=== PATIENT | male | born 1955 | race Caucasian/White ===

== ENCOUNTER 2017-06-09 09:32 | Outpatient (CLI) | payer BC ==
--- NOTE | 2017-06-09 14:42 | MRI ---
MRI LUMBAR SPINE NONCONTRAST: Date: 06/09/17 HISTORY: Low back pain with bilateral leg radiculopathy. FINDINGS: Radiographs are not available for direct correlation; therefore, the lowest lumbar-type vertebra alejandra l be designated as L5, with the remainder numbered accordingly. The conus medullaris has a normal ap pearance. Vertebral body heights are maintained. T12-L1, L1-2, L2-3, and L3-4: Mild osteophytosis and discogenic end plate changes are present. The central canal and neural forami na are patent. L4-5: There is desiccation of the disc and minimal degenerative spondylolisthesis. Prominent posterior dis c protrusion, along with facet joint hypertrophy and ligamentous thickening result in severe stenosi s of the central canal and each neural foramen. In addition, a 0.3 cm synovial cyst projects mediall y from the left facet, further compromising the left neural foramen. L5-S1: There is desiccation of the intervertebral disc. Mild osteophytosis is present. The thecal sac is pa tent. Moderate stenosis of each neural foramen is visible. IMPRESSION: Degenerative changes of the lower lumbar spine, with central canal and foraminal stenoses most sever e at the L4-5 level, as detailed above. POS: [facility]
== END 2017-06-09 09:33 | disposition home or self-care (01) ==
LOC: SCSMRI 09:32
PROVIDERS: ATTEND Family Medicine
DX: M54.9 Dorsalgia, unspecified (principal); M47.816 Spondylosis without myelopathy or radiculopathy, lumbar region; M48.061 Spinal stenosis, lumbar region without neurogenic claudication
CPT/HCPCS: 72148

== ENCOUNTER 2017-06-21 14:14 | Outpatient (CLI) | payer BC ==
[2017-06-21 16:22] LABS: Hematocrit 46.8 % (42.0-52.0); Mean Platelet Volume 6.3 fL (7.4-10.4); Red Blood Cell (RBC) Count 4.46 mill/uL (4.70-6.10); White Blood Cell (WBC) Count 11.2 thou/uL (4.8-10.8)
[2017-06-21 16:32] LABS: Anion Gap 12 mmol/L (10-20); BUN (Urea Nitrogen) 14 mg/dL (8.4-25.7); Calc. Creatinine Clearance 0 mL/min (70-130); Calcium 9.4 mg/dL (7.8-10.44); Carbon Dioxide 23 mmol/L (23-31); Chloride 101 mmol/L (98-107); Estimated GFR-MDRD Greater than 90
== END 2017-06-21 14:15 | disposition home or self-care (01) ==
LOC: LABBT 14:14
PROVIDERS: ATTEND Neurological Surgery
DX: Z01.818 Encounter for other preprocedural examination (principal); M48.062 Spinal stenosis, lumbar region with neurogenic claudication
CPT/HCPCS: 80048; 85027; 93005; 93010

== ENCOUNTER 2017-06-23 07:41 | Day surgery (SDC) | payer BC ==
[2017-06-21 14:34] VITALS: BMI 30.4
--- NOTE | 2017-06-23 02:59 | HP ---
HISTORY OF PRESENT ILLNESS: Mr. Daugherty is a 62-year-old man over the past 10 days who has experienc ed precipitous decline in motor function of his legs secondary to profound spinal canal stenosis at L 4-L5 with associated superiorly migrated disk herniation. He can walk, but has severe neurogenic cla udication symptoms. He has not had any treatment for this at present and is very interested in injec tions; however, I do not feel that this is a great option given how profound her symptoms and stenosi s are. PAST MEDICAL HISTORY: Significant for inguinal hernia, unspecified liver problems and coronary arter ial disease. PAST SURGICAL HISTORY: Liver biopsy, herniorrhaphy, cardiac stents. CURRENT MEDICATIONS: Triamterene/hydrochlorothiazide, amlodipine, Flexeril, Toradol, Stanton, diazepam . ALLERGIES: PENICILLIN. PHYSICAL EXAMINATION: The patient is in wheelchair. In the exam room today, his gait is extraordina rily antalgic. He has appropriate positive straight leg raise bilaterally. He has no sensory distur bance that I can discern. He does have motor weakness present in bilateral ankle, plantar, and dorsi flexion grading 4/5. Reflexes are equal and present bilaterally at the patella. ASSESSMENT: Spinal stenosis and neurogenic claudication. PLAN: Discussed L4-L5 decompression with he and with Dr. Garrido. Dr. Garrido met with the patient, rev iewed imaging, and ultimately advocated for an L4-L5 decompression. He explained to the patient the risks, benefits, and alternatives to the procedure. The patient expressed understanding and would li ke to move forward with surgery as discussed. I do believe the patient is mentally competent and cap able of making medical decisions for himself and we will move forward with surgery as planned. Eusebio Orellana PA-C, dictating under Dr. Garrido.
[2017-06-23] MEDS ORDERED: Clindamycin/D5W 900 mg/50 ml Premix Bag ONE ×2 (08:07→15:17)
[2017-06-23] MEDS ORDERED: Levofloxacin 500 mg/D5W 100 ml Premix Bag ONE (08:07)
--- NOTE | 2017-06-23 08:40 | PRG ---
DATE OF SERVICE: 06/23/2017 SUBJECTIVE: Mr. Daugherty is a 62-year-old gentleman that reports that over the past couple of weeks, he has had progressive pain and weakness in the lower extremities. He was seen in our clinic where vin romel had an MRI scan performed of the lumbar spine which shows severe lumbar stenosis at L4-5 in part du e to facet arthropathy, but also to an L4 disk herniation with a slight degree of superior migration. I met with him this morning and the family to discuss again imaging and in his symptoms. He and th e family report now that he has started to have some bowel and bladder incontinence. He also reports numbness in his feet and started to develop some saddle anesthesia over the past couple of days. We were unaware of this until this morning. I reviewed with him the surgical plan which he will have an L4-5 lumbar decompression and diskectomy. I reviewed with him all the risks, benefits, and alternatives to treatment. I answered all the que stions from the family. They all appeared to understand the contents of our conversation and he did provide informed consent.
[2017-06-23] MEDS ORDERED: Fentanyl 250 MCG/5 ML VIAL ONE (08:53)
[2017-06-23] MEDS ORDERED: Lidocaine 1% PF 5 ML VIAL ONE (09:30)
[2017-06-23] MEDS ORDERED: Glycopyrrolate 0.2 MG/ML 5 ML SYRINGE ONE (09:30)
[2017-06-23] MEDS ORDERED: Propofol 200 MG/20 ML VIAL ONE (09:30)
[2017-06-23] MEDS ORDERED: Ondansetron HCl/PF 4 MG/2 ML Vial ONE (09:30)
[2017-06-23] MEDS ORDERED: Fentanyl 100 MCG/2 ML VIAL ONE (11:24)
--- NOTE | 2017-06-23 11:38 | OP ---
DATE OF OPERATION: 06/23/2017 SURGEON: Torres Garrido M.D. MEDICAL INFORMATION SPECIALIST: Eusebio Orellnaa PA-C INDICATION: Pain. DIAGNOSES: Lumbar stenosis, lumbar radiculopathy, and cauda equina. PROCEDURE: L4-5 lumbar decompression discectomy. ANESTHESIA: General. TECHNIQUE: The patient was brought into the operating room and placed under general anesthesia. He was flipped from a supine to a prone position on the operating room table. A linear incision was dee nned over the L4-L5 segment. After prepping and draping and after an appropriate operative pause, th e incision was created. The soft tissues were swept away from midline. A self-retaining retractor w as placed in the wound for optimal exposure. After confirming the appropriate level, an Adson rongeu r was used to remove the spinous process of L4 and the superior aspect of L5. A high-speed cutting d rill bit as well as 2, 3 and 4-mm Kerrisons were then used to perform a laminectomy along the L4-5 in terspace. The central canal and lateral recesses were completely decompressed. There was a superior ly migrated disk material, most prominent on the left side that was removed. After complete decompre ssion, the wound was irrigated. Hemostasis was maintained throughout. The wound was then closed in anatomic layers and a pressure dressing was applied. There were no known procedural complications.
[2017-06-23] MEDS ORDERED: Tamsulosin HCl 0.4 MG CAP ONE (11:53)
[2017-06-23] MEDS ORDERED: HYDROcodone/Acetaminophen 5/325 mg Tablet ONE (13:59)
== END 2017-06-23 16:04 | disposition home or self-care (01) ==
LOC: SDC 07:41
PROVIDERS: ATTEND Neurological Surgery
PROC: 00NY0ZZ Release Lumbar Spinal Cord, Open Approach (ICD-10-PCS; principal; 2017-06-23)
DX: M48.061 Spinal stenosis, lumbar region without neurogenic claudication (principal); F17.210 Nicotine dependence, cigarettes, uncomplicated; M54.16 Radiculopathy, lumbar region; Z88.0 Allergy status to penicillin
CPT/HCPCS: 76001; 96374; J1956; J2001; J2405; J2704; J3010; J3490

== ENCOUNTER 2017-09-11 11:34 | Outpatient (CLI) | payer BC | END 2017-09-11 11:35 | disposition home or self-care (01) | LOC: BICRAD 11:34 | PROVIDERS: ATTEND Family Medicine | DX: R05 Cough (principal) | CPT/HCPCS: 71046 ==

== ENCOUNTER 2017-09-25 07:08 | Outpatient (CLI) | payer BC ==
--- NOTE | 2017-09-25 10:09 | ULT ---
HEPATIC ULTRASOUND AND DOPPLER: HISTORY: Cirrhosis. COMPARISON: None. TECHNIQUE: Webster scale, color flow, Doppler imaging with spectral waveform analysis performed of the liver. FINDINGS: Pancreas is obscured by bowel gas. There is nodularity throughout the hepatic parenchyma. There is also heterogeneous echotexture of th e liver which limits evaluation for intrahepatic masses and intrahepatic biliary dilatation. Right h epatic lobe measures 21 cm. Common bile duct diameter is 0.5 cm. No sonographic evidence of cholelithiasis, gallbladder wall thickening, or pericholecystic fluid. So nographer does not comment on the presence or absence of Song's sign. Spleen is enlarged measuring 17.7 cm. HEPATIC DOPPLER: There is patency and normal direction of flow in the middle hepatic vein, right hepatic vein, left he patic vein, left portal vein, right portal vein, main portal vein, left portal vein, and hepatic mile ry. The spleen vein and artery are also patent. IMPRESSION: 1. Normal hepatic Doppler. 2. Nodularity of the liver, compatible with history of cirrhosis. 3. Hepatosplenomegaly. POS: [facility]
== END 2017-09-25 07:09 | disposition home or self-care (01) ==
LOC: ULT 07:08
PROVIDERS: ATTEND Internal Medicine Gastroenterology
DX: Z12.11 Encounter for screening for malignant neoplasm of colon (principal); K74.60 Unspecified cirrhosis of liver; K76.89 Other specified diseases of liver; R10.33 Periumbilical pain; R16.2 Hepatomegaly with splenomegaly, not elsewhere classified
CPT/HCPCS: 76705

== ENCOUNTER 2017-12-19 09:13 | Outpatient (CLI) | payer BC | END 2017-12-19 09:14 | disposition home or self-care (01) | LOC: BICRAD 09:13 | PROVIDERS: ATTEND Family Medicine | DX: R05 Cough (principal) | CPT/HCPCS: 71046 ==

== ENCOUNTER → 2017-12-25 | Day surgery (SDC) | payer BC, OTHER ==
[~2017-12-25] MED LIST: Lidocaine 1% PF 5 ML VIAL ONE; Sodium Bicarbonate 2.5 MEQ/5 ML VIAL ONE
[2017-12-25 14:52] VITALS: BMI 30.8
[2017-12-25 15:02] LABS: INR-International Normal Ratio 1.3; Prothrombin Time 16.8 SEC (12.0-14.7)
[2017-12-25 15:03] LABS: PTT 37.3 SEC (22.9-36.1)
[2017-12-25 17:01] LABS: Body Fluid Source Ascites Body Fluid
[2017-12-25 17:02] LABS: BF Color Yellow; BF RBC Count - Manual 405 /cumm; Clarity Hazy (Clear); RBC Background Count 0.001; Tube # EDTA; WBC Background Count 0.01; WBC/NonHematic-Auto 302 /cumm
[2017-12-25 17:10] LABS: BF Segmented Neutrophils 17 %; Cell Count Non Hematic 45 %; Lymphocytes 38 %
--- NOTE | 2017-12-25 17:12 | ULT ---
ULTRASOUND GUIDED PARACENTESIS: CLINICAL INDICATION: Ascites. Liver disease. PROCEDURE: After informed consent had been obtained, the patient was escorted to the ultrasound suite and placed in a supine position. The abdomen was imaged which revealed adequate ascites for the procedure. Th e skin of the abdomen was then prepped and draped in the standard sterile fashion and the skin surfac e, subcutaneous tissues, and peritoneal lining of the abdomen were anesthetized with 1% Lidocaine buf fered with sodium bicarbonate. A right lower quadrant approach was selected. A small skin incision was made at the site of topical anesthesia. Subsequently, under real-time ultrasound guidance a [employer] catheter was advanced through the incision site into the peritoneal cavity. Ascites was present at the catheter hub. The catheter was then secured to vacuum sealed sterile containers, via sterile tub ing and subsequently 6 L of slightly turbid yellow ascites was drained from the patient. The patient was then removed from the patient. The patient tolerated the procedure well without evidence of com plication. Postprocedure imaging revealed no complication and interval reduction in volume of ascite s. The patient was monitored by a radiology nurse and was stable in condition. IMPRESSION: Technically successful ultrasound-guided paracentesis, as above. POS: [facility]
== END ==
LOC: ULT 14:29
PROVIDERS: ATTEND Internal Medicine Gastroenterology
PROC: 0W9G3ZX Drainage of Peritoneal Cavity, Percutaneous Approach, Diagnostic (ICD-10-PCS; principal; 2017-12-25)
PROC: BW40ZZZ Ultrasonography of Abdomen (ICD-10-PCS; principal; 2017-12-25)
DX: R18.8 Other ascites (principal); K76.9 Liver disease, unspecified; I25.10 Atherosclerotic heart disease of native coronary artery without angina pectoris; E78.2 Mixed hyperlipidemia; I10 Essential (primary) hypertension; Z88.0 Allergy status to penicillin; Z98.890 Other specified postprocedural states
CPT/HCPCS: 49083; 82042; 84157; 85060; 85610; 85730; 87070; 87205; 88112; 88305; 89051; J2001

== ENCOUNTER 2017-12-29 14:47 | Emergency (ER) | payer BC ==
[2017-12-29 15:15] LABS: #Eosinphils 0.1 thou/uL (0.0-0.7); #Monocytes 1.1 thou/uL (0.11-0.59); #Neutrophils 7.3 thou/uL (1.40-6.50); %Basophils 0.1 % (0.0-1.0); %Lymphocytes 19.1 % (21.0-51.0); %Neutrophils 69.7 % (42.0-75.0); Mean Corpuscular HGB CONC 34.5 g/dL (32.0-36.0); Mean Corpuscular Hemoglobin 35.6 pg (27.0-31.0); Mean Platelet Volume 5.9 fL (7.4-10.4); Platelet Count 233 thou/uL (130-400); RBC Distribution Width 13.1 % (11.5-14.5); Red Blood Cell (RBC) Count 4.21 mill/uL (4.70-6.10); White Blood Cell (WBC) Count 10.5 thou/uL (4.8-10.8)
[2017-12-29 15:35] LABS: ALT (SGPT) 44 U/L (8-55); AST (SGOT) 65 U/L (5-34); Albumin 3.1 g/dL (3.4-4.8); Alkaline Phosphatase 223 U/L (40-150); Anion Gap 15 mmol/L (10-20); BUN (Urea Nitrogen) 22 mg/dL (8.4-25.7); Bilirubin, Total 3.5 mg/dL (0.2-1.2); CK (CPK) 40 U/L (30-200); Calc. Creatinine Clearance 0 mL/min (70-130); Calcium 9.2 mg/dL (7.8-10.44); Carbon Dioxide 23 mmol/L (23-31); Chloride 96 mmol/L (98-107); Estimated GFR-MDRD 87; Globulin 3.8 g/dL (2.4-3.5); Glucose 134 mg/dL (80-115); Lipase 45 U/L (8-78); Potassium 3.8 mmol/L (3.5-5.1); Protein, Total 6.9 g/dL (5.8-8.1); Sodium 130 mmol/L (136-145)
[2017-12-29] MEDS ORDERED: Albumin 25% 25 GM/100 ML BOT IVPB SCH (17:15)
[2017-12-29 17:36] LABS: INR-International Normal Ratio 1.5; Prothrombin Time 18.4 SEC (12.0-14.7)
[2017-12-29 17:42] LABS: Bilirubin Small (Negative); Blood, Urine Negative (Negative); Clarity CLEAR (Clear); Glucose, Urine (Dipstick) Negative (Negative); Leukocyte Negative (Negative); Nitrite Negative (Negative); Protein, Urine (Dipstick) Negative (Neg-Trace); Specific Gravity, Urine 1.023 (1.002-1.036); pH, Urine 5.5 (5.0-9.0)
[2017-12-29 19:02] LABS: Lactic Acid 1.5 mmol/L (0.5-2.2)
[2017-12-29] MEDS ORDERED: Lidocaine 1% w/Epinephrine 1:100K 20 ML VIAL ONE (19:31)
[2017-12-29 22:14] LABS: Body Fluid Source PARACENTESIS FLD; Tube # 1
[2017-12-29 22:15] LABS: BF Color Yellow; BF RBC Count - Manual 181 /cumm; Clarity Hazy (Clear); WBC/NonHematic-Auto 242 /cumm
[2017-12-29 22:33] LABS: BF Segmented Neutrophils 10 %; Cell Count Non Hematic 55 %; Lymphocytes 35 %
== END 2017-12-29 22:50 | disposition home or self-care (01) ==
LOC: ERS 14:47
DX: R18.8 Other ascites (principal); R06.02 Shortness of breath; I10 Essential (primary) hypertension; E78.5 Hyperlipidemia, unspecified; K74.60 Unspecified cirrhosis of liver; F17.210 Nicotine dependence, cigarettes, uncomplicated; Z71.6 Tobacco abuse counseling; Z79.899 Other long term (current) drug therapy
CPT/HCPCS: 36415; 80053; 81003; 82150; 82550; 83605; 83690; 85025; 85060; 85610; 85730; 86850; 86900; 86901; 87040; 87070; 87205; 89051; 94760; 96365; 96366; 99406; J2001; P9047

== ENCOUNTER 2018-01-09 16:01 | Inpatient (IN) | payer BC ==
[2018-01-09] MEDS ORDERED: Dextrose 5 % And 0.9 % NaCl 1,000 ML IV SCH (17:15)
[2018-01-09] MEDS ORDERED: Octreotide Acetate 1,250 MCG in Sodium Chloride 0.9% 250 ML 250 ML IVPB SCH (17:30)
[2018-01-09] MEDS ORDERED: Octreotide Acetate 500 MCG/ML VIAL SLOW IVP SCH (17:30)
[2018-01-09 18:26] LABS: INR-International Normal Ratio 1.9; Prothrombin Time 22.4 SEC (12.0-14.7)
[2018-01-09 18:42] LABS: ALT (SGPT) 44 U/L (8-55); AST (SGOT) 60 U/L (5-34); Albumin 2.7 g/dL (3.4-4.8); Alkaline Phosphatase 179 U/L (40-150); Anion Gap 12 mmol/L (10-20); BUN (Urea Nitrogen) 38 mg/dL (8.4-25.7); Bilirubin, Total 1.9 mg/dL (0.2-1.2); Calc. Creatinine Clearance 118 mL/min (70-130); Calcium 8.8 mg/dL (7.8-10.44); Carbon Dioxide 22 mmol/L (23-31); Chloride 89 mmol/L (98-107); Estimated GFR-MDRD Greater than 90; Globulin 2.8 g/dL (2.4-3.5); Glucose 111 mg/dL (80-115); Potassium 5.6 mmol/L (3.5-5.1); Protein, Total 5.5 g/dL (5.8-8.1)
[2018-01-09 18:55] LABS: Sodium 117 mmol/L (136-145)
[2018-01-09 19:02] LABS: Band 1 % (5-11); Lymphocytes 10 % (21-51); MDiff Complete? YES; Macrocytosis SLIGHT = 6-15 cells (100X) (0-5/hpf); Mean Corpuscular HGB CONC 35.2 g/dL (32.0-36.0); Mean Corpuscular Hemoglobin 36.6 pg (27.0-31.0); Mean Platelet Volume 5.8 fL (7.4-10.4); Monocytes 10 % (0-10); Neutrophil 79 % (42-75); PLT Morphology Comment Appears Adequate; Platelet Count 275 thou/uL (130-400); Polychromasia SLIGHT = 2-3 cells (100X) (0-2/hpf); RBC Distribution Width 13.7 % (11.5-14.5); Red Blood Cell (RBC) Count 2.73 mill/uL (4.70-6.10); White Blood Cell (WBC) Count 26.6 thou/uL (4.8-10.8)
[2018-01-09] MEDS: Dextrose 5 % And 0.9 % NaCl 1,000 ML IV SCH (19:40)
[2018-01-09 20:56] LABS: Bilirubin Negative (Negative); Blood, Urine Negative (Negative); Clarity CLEAR (Clear); Glucose, Urine (Dipstick) Negative (Negative); Leukocyte Negative (Negative); Nitrite Negative (Negative); Protein, Urine (Dipstick) Negative (Neg-Trace); Specific Gravity, Urine 1.019 (1.002-1.036); Urobilinogen 0.2 mg/dL (0.2-1.0); pH, Urine 5.5 (5.0-9.0)
[2018-01-09 21:03] LABS: Bacteria/HPF None Seen HPF (None Seen); Hyaline Casts/LPF 0-3 HYALINE CAST LPF (0-3 Hyaline); Pathc Cast-AUWi Flag 0.14 (0-2.49); RBC/HPF 0-3 HPF (0-3); Squamous Epithelial None Seen HPF (0-3); WBC/HPF None Seen HPF (0-3)
--- NOTE | 2018-01-09 21:29 | PDOC.FPRHP ---
- History of Present Illness Chief Complaint: direct admit for GIB History of Present Illness: 62 yo M with PMH significant for cirrhosis 2/2 steatohepatitis direct admitted from [facility] for concern for acute GI bleed. Had dark bloody bowel movement yesterday afternoon, as well as some diarrhea over the past 2-3 days. This was followed by episodes of N/V, which was nonbloody/nonbilious. Denies any recent sick contacts or F/Ch. Has had 3 therapeutic paracenteses, most recently having had 6.5L removed about a week ago. Had EGD and colonoscopy within the last 2 years which were normal save for some gastritis for which he was started on a PPI. No evidence of varices at that time. - Allergies/Adverse Reactions Allergies Allergy/AdvReac Type Severity Reaction Status Date / Time Penicillins Allergy Verified 06/21/17 14:34 - Home Medications Medication Instructions Recorded Confirmed Type Amlodipine [Norvasc] 1 tab PO DAILY 06/21/17 01/09/18 History Furosemide 40 mg PO BID 01/09/18 01/09/18 History Pantoprazole [Protonix] 40 mg PO DAILY 01/09/18 01/09/18 History Sennosides [Senna] 8.6 mg PO BID 01/09/18 01/09/18 History Spironolactone 50 mg PO DAILY 01/09/18 01/09/18 History oxyCODONE HCl [Oxycodone HCl] 5 mg PO Q6HR 01/09/18 01/09/18 History - History PMHx:cirrhosis secondary to steatohepatitis, CAD, HTN, HLD PSHx: cardiac stenting, hernia repair, liver biopsy FHx: Social: - Review of Systems General: denies: fever/chills, weight/appetite/sleep changes Eyes: denies: vision changes ENT: denies: nasal congestion, rhinorrhea Respiratory: denies: cough, congestion, shortness of breath Cardiovascular: denies: chest pain, palpitation Gastrointestinal: reports: nausea, vomiting, diarrhea, abdominal pain, GI bleeding Genitourinary: denies: incontinence, dysuria Skin: denies: rashes, lesions, jaundice Musculoskeletal: denies: pain, tenderness, stiffness, swelling Neurological: denies: numbness, syncope Psychological: denies: anxiety, depression - Vital signs BP: [128/72] HR: [95] RR: [18] Tmax: [97.7] Pox: [98]% on [Ra] Wt: [85kg] - Physical Exam Constitutional: NAD, awake, alert and oriented, well developed HEENT: normocephalic and atraumatic, PERRLA, EOMI, conjunctiva clear, no scleral icterus, MMM, oropharynx clear Neck: supple, FROM, no LAD Heart: RRR, normal S1/S2, no murmurs/rubs/gallops Lungs: CTAB, no respiratory distress Abdomen: soft, non-tender, bowel sounds present, other (mild distention diffusely, nonTTP) Musculoskeletal: normal structure, normal tone, ROM grossly normal Neurological: no focal deficit, CN II-XII intact, normal sensation Skin: no rash/lesions, capillary refill <2 seconds Psychiatric: normal mood and affect FMR H&P: Results - Labs Result Diagrams: 01/10/18 01:02 01/10/18 01:04 Lab results: WBC 26.6 thou/uL (4.8-10.8) H 01/09/18 18:07 Hgb 10.0 g/dL (14.0-18.0) L 01/09/18 18:07 Hct 28.3 % (42.0-52.0) L 01/09/18 18:07 MCV 104.0 fl (80.0-94.0) H 01/09/18 18:07 Plt Count 275 thou/uL (130-400) 01/09/18 18:07 Band Neuts % (Manual) 1 % (5-11) L 01/09/18 18:07 Sodium 117 mmol/L (136-145) L* 01/09/18 18:07 Potassium 5.6 mmol/L (3.5-5.1) H 01/09/18 18:07 Chloride 89 mmol/L (98-107) L 01/09/18 18:07 Carbon Dioxide 22 mmol/L (23-31) L 01/09/18 18:07 BUN 38 mg/dL (8.4-25.7) H 01/09/18 18:07 Creatinine 0.78 mg/dL (0.6-1.3) 01/09/18 18:07 Glucose 111 mg/dL (80-115) 01/09/18 18:07 Calcium 8.8 mg/dL (7.8-10.44) 01/09/18 18:07 Total Bilirubin 1.9 mg/dL (0.2-1.2) H 01/09/18 18:07 AST 60 U/L (5-34) H 01/09/18 18:07 ALT 44 U/L (8-55) 01/09/18 18:07 Alkaline Phosphatase 179 U/L (40-150) H 01/09/18 18:07 Serum Total Protein 5.5 g/dL (5.8-8.1) L 01/09/18 18:07 Albumin 2.7 g/dL (3.4-4.8) L 01/09/18 18:07 Urine Ketones Negative mg/dL (Negative) 01/09/18 19:50 Urine Blood Negative (Negative) 01/09/18 19:50 Urine Nitrite Negative (Negative) 01/09/18 19:50 Ur Leukocyte Esterase Negative (Negative) 01/09/18 19:50 Urine RBC 0-3 HPF (0-3) 01/09/18 19:50 Urine WBC None Seen HPF (0-3) 01/09/18 19:50 Ur Squamous Epith Cells None Seen HPF (0-3) 01/09/18 19:50 Urine Bacteria None Seen HPF (None Seen) 01/09/18 19:50 FMR H&P: A/P - Problem List (1) GI bleed Current Visit: Yes Status: Acute Code(s): K92.2 - GASTROINTESTINAL HEMORRHAGE, UNSPECIFIED Assessment and Plan: GI consulted, planning for EGD tomorrow AM. NPO after midnight. Continue PPI and octreotide gtt. Continue IVFs. Tachycardic currently, but improving. Otherwise VSS. (2) Cirrhosis Current Visit: Yes Status: Chronic Code(s): K74.60 - UNSPECIFIED CIRRHOSIS OF LIVER Assessment and Plan: Due to problem #3. Had recently therapeutic tap. (3) Steatohepatitis Current Visit: Yes Status: Acute Code(s): K75.81 - NONALCOHOLIC STEATOHEPATITIS (SINGH) - Plan NPO at midnight for diagnostic EGD tomorrow morning with Dr. Mathis. Continue octreotide and PPI. Trend H/H. FMR H&P: Upper Level - Plan Date/Time: 01/09/182126 I, [], have evaluated this patient and agree with findings/plan as outlined by international specialist resident. Pertinent changes/additions are listed here. Attending Addendum - Attending Addendum Date/Time: 01/09/18 4853 I personally evaluated the patient and discussed the management with Dr. Cox. I agree with the History, Examination, Assessment and Plan documented above with any addition or exceptions noted below. Patient with history of cirrhosis presenting as direct admit after 1 episode of large bowel movement with mixed dark and bright red blood. Denies further episodes. He otherwise denies pain complaints. His vitals are stable at the time of my exam. Abdomen is soft, nontender. Labs pertinent for hyponatremia to 117, leukocytosis, stable H/H. Patient to be admitted for Acute GI bleeding in setting of cirrhosis. He has been started on antibiotics, octreotide, and protonix. GI on board with plans to scope in AM. Trend H/H and monitor WBC for continued elevation and/or signs of bacterial infection. Currently does not appear to have SBP but high risk due to bleeding episodes. Hyponatremia likely 2 /2 his cirrhosis, portending poor prognosis. Trend and monitor.
[2018-01-09] MEDS: Pantoprazole 40 MG VIAL IVP SCH (22:06)
[2018-01-10] MEDS ORDERED: Ondansetron ODT 4 MG TAB PO PRN (00:11)
[2018-01-10 01:43] LABS: Anion Gap 10 mmol/L (10-20); BUN (Urea Nitrogen) 37 mg/dL (8.4-25.7); Calc. Creatinine Clearance 121 mL/min (70-130); Calcium 8.3 mg/dL (7.8-10.44); Carbon Dioxide 22 mmol/L (23-31); Chloride 92 mmol/L (98-107); Estimated GFR-MDRD Greater than 90; Glucose 114 mg/dL (80-115); Potassium 5.9 mmol/L (3.5-5.1)
[2018-01-10 01:47] LABS: Sodium 118 mmol/L (136-145)
[2018-01-10] MEDS: Dextrose 5 % And 0.9 % NaCl 1,000 ML IV SCH ×2 (05:19→16:01)
[2018-01-10 05:49] LABS: ALT (SGPT) 40 U/L (8-55); AST (SGOT) 55 U/L (5-34); Albumin 2.4 g/dL (3.4-4.8); Alkaline Phosphatase 155 U/L (40-150); Bilirubin, Total 1.7 mg/dL (0.2-1.2); Globulin 2.4 g/dL (2.4-3.5); Protein, Total 4.8 g/dL (5.8-8.1)
[2018-01-10 06:16] LABS: Eosinophils 1 % (0-10); Hemoglobin 8.8 g/dL (14.0-18.0); Lymphocytes 16 % (21-51); MDiff Complete? YES; Mean Corpuscular HGB CONC 34.9 g/dL (32.0-36.0); Mean Corpuscular Hemoglobin 36.7 pg (27.0-31.0); Monocytes 9 % (0-10); Neutrophil 74 % (42-75); PLT Morphology Comment Appears Adequate; Platelet Count 214 thou/uL (130-400); RBC Distribution Width 13.6 % (11.5-14.5); Red Blood Cell (RBC) Count 2.39 mill/uL (4.70-6.10); White Blood Cell (WBC) Count 22.3 thou/uL (4.8-10.8)
[2018-01-10] MEDS: Pantoprazole 40 MG VIAL IVP SCH ×2 (07:51→21:56)
--- NOTE | 2018-01-10 08:27 | CON ---
DATE OF CONSULTATION: 01/09/2018 HISTORY OF PRESENT ILLNESS: Mr. Daugherty is being admitted to the hospital from my office for rectal bleeding, which began last night. He states it was 7 or 8 bowel movements that were bloody, dark red , wine-like, and then today became more dark tarry. He initially thought he was going to be vomiting , but then never threw up. He has had diarrhea, feels a little weak, but it stopped. His last bowel movement was prior to the midmorning. He came to the office at about 3:00. He has a history of cirrhosis, was recently diagnosed in September. I saw him back in 2004 when he noble d fatty liver as well as nonalcoholic liver disease and he was drinking some alcohol at that time. Carlos urena was treated with Zetia for his hyperlipidemia, vitamin E for steatosis, and recommended to have joesph ght loss. I saw him again in and he had hepatosplenomegaly on ultrasound that concerning for cirrhosis. This was discussed with patient and he did not want to proceed with biopsy at that time, recommended complete alcohol avoidance at that time. At the time of referral, he has had cirrhotic morphology liver with splenic varices, recanalized umbi lical vein, diverticulosis, gallbladder distention. 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 At that time, we repe ated serologic workup regarding his liver disease and initially, his AST and ALT were 91 and 58 with a bilirubin of 1.3, alkaline phosphatase and we advised him to stop drinking alcohol. In previ ous serologic evaluation elevated at 24 and smooth muscle antibody was 1 to 80. His IgG was a little bit elevated at 1732. Hepatitis studies are normal. Iron studies notable for a ferriti n of 1225, iron binding at 56% with a total iron of 100. Hemoglobin genotype was performed and it wa s negative. We did talk to him about the possibly of the autoimmune component of this disease and we talked about rebiopsy with him, he refused that. We advised him to stop drinking alcohol completely, which he re ports he did and with positive autoimmune markers and worsening of liver function test we went ahead and started him empirically on steroid trial; however, a month later, and he stated he was feeling be tter. At that time, his LFTs were about the same; however, the JOSH and smooth muscle antibody were l ower. IgG had dropped to 1392, was normal at 17; however, his liver function tests were no dif ferent. Follow up in 12/15, a complaint of worsening abdominal pain and swelling. He was noted to have devel oped ascites. At this time, we started him on Lasix and Aldactone. Discontinued Prednisone. Hepati tis A, B, and C, DNA, and RNA which were negative. Referred him for histology decompensated cirrhosi s for transplant evaluation and make sure we are not missing any underlying causes. Paps were negati ve for SBP. Serum ascitic albumin gradient was greater than 1.1 and cytology was negative. The patient did see Hepatology in early January, they have another MRI of his liver and liver biopsy. Before I saw him in the office, he reports he was in the ER at [facility] last weekend where he had paracentesis with no signs of portal SBP. He had Doppler studies which showed patent portal vein , right portal vein, left portal vein, and inferior vena cava, cirrhotic liver, small amount of sludg e, mild gallbladder wall thickening, moderate ascites. He did have no bleeding there. They increased his furosemide to 40 b.i.d. and Aldactone to 50 b.i.d. On 01/06, hemoglobin was 14. His white count was 14. On 12/13, his hemoglobin was 14. His white count was 10. His platelet counts are 246. AST and ALT were 41 and 63, alkaline phosphatase is 219. Total bilirubin 2.6, albumin 3.3, and protein 6.6. INR is 1.6. It was felt to have hyponatremia. He was in the hospital, he began to have some black stools and melena was added to his problems list in fact, he reported dark stools while taking ibuprofen. Antecedent to being admitted to the [facility], he was placed on PPIs in the hospitalization. He also had an alpha fetoprotein done that was nor mal. His hemoglobin was 12.5 at discharge. He was given some oxycodone and instructed to remain on his other medications. PAST MEDICAL HISTORY: Reflux, hemorrhoids, IBS. PAST SURGICAL HISTORY: Angioplasty, cardiac catheter, cardiac stenting, herniorrhaphy using colonosc opy in September. ALLERGIES: PENICILLIN. SOCIAL HISTORY: Alcohol use moderate to heavy in the past, none now. Most recent occupation is [employer]. He has 2 children and 2 stepchildren. PHYSICAL EXAMINATION: GENERAL: He is resting comfortably in the office. He has overt ascites. VITAL SIGNS: Weight 188, down from max of 216 since starting diuretics. He has temporal wasting. NECK: Supple without adenopathy. LUNGS: Clear. HEART: Regular rate and rhythm. ABDOMEN: Protuberant. Shifting dullness and fluid wave. RECTAL: Shows melenic stool. EXTREMITIES: No clubbing, cyanosis, or edema. ASSESSMENT: This is a gentleman with cirrhosis who was recently at the [facility] for ab dominal pain, ruled out for spontaneous bacterial peritonitis, did report dark stools there. Now, he came to my office in followup after being in hospital since the it seems. He has had multiple d iarrheal stools, which had red blood, and black stool yesterday. He only had grade 1 varices on his EGD back in September, but he has been taking quite a bit of ibuprofen now apparently for stomach pain . He is off this. He has been on a PPI, we are going to admit him to the hospital for what appears to be a gastrointestinal bleed. We will start him on a PPI IV, octreotide, and antibiotics. Obtain a stat H and H. If he shows signs of acute hemorrhage, he will need endoscopy this evening. If not, we will plan for EGD tomorrow.
--- NOTE | 2018-01-10 09:57 | PDOC.FM ---
- Subjective Subjective: Patient seen in bed. He state he is feeling well. He denies any continual bleeding, pain, dizziness. He has been NPO for preparation for scope toay. - Objective MAR Reviewed: Yes Vital Signs & Weight: Vital Signs (12 hours) Temp Pulse Resp BP BP Pulse Ox 01/10/18 07:37 97.8 F 81 18 110/65 96 01/10/18 04:00 98.1 F 90 16 113/66 93 L 01/10/18 00:00 98.8 F 91 16 112/67 93 L Weight Weight 85.82 kg Result Diagrams: 01/10/18 01:02 01/10/18 01:04 <Emanuel Wood M - Last Filed: 01/10/18 09:53> - Objective Vital Signs & Weight: Vital Signs (12 hours) Temp Pulse Resp BP BP Pulse Ox 01/10/18 07:37 97.8 F 81 18 110/65 96 01/10/18 04:00 98.1 F 90 16 113/66 93 L 01/10/18 00:00 98.8 F 91 16 112/67 93 L Weight Weight 85.82 kg Result Diagrams: 01/10/18 01:02 01/10/18 01:04 <Junior Soni R - Last Filed: 01/10/18 10:48> Phys Exam - Physical Examination Constitutional: NAD HEENT: moist MMs Neck: supple Respiratory: no wheezing, no rales, no rhonchi Cardiovascular: RRR, no significant murmur Gastrointestinal: soft, no distention Musculoskeletal: no edema Neurological: moves all 4 limbs Lymphatic: no nodes Skin: no rash <Emanuel Wood M - Last Filed: 01/10/18 09:53> Dx/Plan (1) GI bleed Code(s): K92.2 - GASTROINTESTINAL HEMORRHAGE, UNSPECIFIED Status: Acute Plan: Patient has no further bleeding, vital stable, not symptomatic at this time. Plan, follow up with GI after scope for recommendation. (2) Cirrhosis Code(s): K74.60 - UNSPECIFIED CIRRHOSIS OF LIVER Status: Chronic Plan: Chronic issue. likely related tsteatohepatitis. Patient has GI bleed, so on levaquin prophylaxis. (3) Steatohepatitis Code(s): K75.81 - NONALCOHOLIC STEATOHEPATITIS (SINGH) Status: Acute Plan: Known chronic issue that is likely cause of patient's cirrhosis. (4) Hyponatremia Code(s): E87.1 - HYPO-OSMOLALITY AND HYPONATREMIA Status: Acute Plan: Despite normal saline, still hyponatremic. Hyponatremia may be result of cirrhotic liver disease. Plan for fluid restriction s/p scope. <Emanuel Wood M - Last Filed: 01/10/18 09:53> (1) GI bleed Code(s): K92.2 - GASTROINTESTINAL HEMORRHAGE, UNSPECIFIED Status: Acute (2) Cirrhosis Code(s): K74.60 - UNSPECIFIED CIRRHOSIS OF LIVER Status: Chronic (3) Steatohepatitis Code(s): K75.81 - NONALCOHOLIC STEATOHEPATITIS (SINGH) Status: Acute <Junior Soni - Last Filed: 01/10/18 10:48> Attending Addendum - Attending Addendum Date/Time: 01/10/18 1045 I personally evaluated the patient and discussed the management with Dr. Wood. I agree with the History, Examination, Assessment and Plan documented above with any addition or exceptions noted below. Patient here with history of cirrhosis and acute GI bleeding. GI has evaluated and has plans for endoscopy today. Continue octreotide, SBP ppx. Hgb will continue to be trended. Patient does have severe asymptomatic hyponatremia that was apparently noted on outpatient lab work. It did not respond to IV fluid hydration overnight. It is likely both a complication and prognostication of his cirrhosis. Once he is on diet, will attempt fluid restriction to improve his sodium leve. K and BUN mildly elevated, likely due to his GI bleeding. Continue to monitor, no need for urgent intervention at this time. Further mgmt per GI recs. <Junior Soni R - Last Filed: 01/10/18 10:48>
[2018-01-10] MEDS ORDERED: PROPOFOL 200 MG/20 ML VIAL ONE (15:09)
[2018-01-10] MEDS ORDERED: Promethazine HCl 25 MG/ML VIAL SLOW IVP PRN (18:48)
[2018-01-10] MEDS ORDERED: Promethazine HCl 25 MG/ML VIAL IM PRN (18:48)
[2018-01-10] MEDS ORDERED: Ondansetron HCl/PF 4 MG/2 ML Vial IVP PRN (18:48)
--- NOTE | 2018-01-10 20:26 | OP ---
PREOPERATIVE DIAGNOSIS: Upper gastrointestinal bleed. PROCEDURE: After informed consent was obtained, the patient placed in left lateral decubitus positio n. Anesthesia was administered per the Anesthesia Department. Forward-viewing endoscope was inserte d into the esophagus under direct visualization with ease and passed to the second portion of the duo denum with ease. Second portion of the duodenum was normal. The duodenal bulb had a very large ulce ration. There was no obvious visible vessel, no active bleeding was noted. Biopsies were taken from the liver edge since this ulcer was very big and had a very cratered looking edge. The pylorus, ant rum, body, fundus, and cardia were normal except for changes of portal hypertensive gastropathy. The esophagus showed grade I-II esophageal varices. ASSESSMENT: 1. Large duodenal ulcer without visible vessel or active bleeding - status post biopsy. 2. Portal hypertensive gastropathy. 3. Grade I-II esophageal varices without stigmata of recent hemorrhage. RECOMMENDATIONS: 1. Stop octreotide. 2. Continue proton-pump inhibitor. 3. Resume diet.
[2018-01-11] MEDS: Dextrose 5 % And 0.9 % NaCl 1,000 ML IV SCH (03:29)
[2018-01-11] MEDS ORDERED: Ibuprofen 200 MG TAB PO PRN (04:20)
[2018-01-11 05:30] LABS: ALT (SGPT) 56 U/L (8-55); AST (SGOT) 92 U/L (5-34); Albumin 2.2 g/dL (3.4-4.8); Alkaline Phosphatase 147 U/L (40-150); Anion Gap 10 mmol/L (10-20); BUN (Urea Nitrogen) 24 mg/dL (8.4-25.7); Bilirubin, Total 1.9 mg/dL (0.2-1.2); Calc. Creatinine Clearance 127 mL/min (70-130); Calcium 7.8 mg/dL (7.8-10.44); Carbon Dioxide 20 mmol/L (23-31); Chloride 98 mmol/L (98-107); Estimated GFR-MDRD Greater than 90; Globulin 2.4 g/dL (2.4-3.5); Glucose 90 mg/dL (80-115); Potassium 5.1 mmol/L (3.5-5.1); Protein, Total 4.6 g/dL (5.8-8.1); Sodium 123 mmol/L (136-145)
[2018-01-11] MEDS ORDERED: oxyCODONE 5 MG TAB PO SCH (06:00)
[2018-01-11] MEDS: Pantoprazole 40 MG VIAL IVP SCH (07:39)
[2018-01-11 08:35] LABS: Eosinophils 3 % (0-10); Hemoglobin 8.1 g/dL (14.0-18.0); Lymphocytes 9 % (21-51); MDiff Complete? YES; Macrocytosis SLIGHT = 6-15 cells (100X) (0-5/hpf); Mean Corpuscular HGB CONC 33.8 g/dL (32.0-36.0); Mean Corpuscular Hemoglobin 35.5 pg (27.0-31.0); Mean Platelet Volume 5.7 fL (7.4-10.4); Monocytes 8 % (0-10); Neutrophil 76 % (42-75); PLT Morphology Comment Appears Adequate; Platelet Count 177 thou/uL (130-400); Polychromasia SLIGHT = 2-3 cells (100X) (0-2/hpf); RBC Distribution Width 14.1 % (11.5-14.5); Reactive Lymphocytes 4 % (0-10); White Blood Cell (WBC) Count 13.7 thou/uL (4.8-10.8)
--- NOTE | 2018-01-11 09:38 | PDOC.FM ---
- Subjective Subjective: Patient resting comfortably in bed. Not currently having pain or GI bleed. He had EGD yesterday that showed a gastric ulcer with no active bleeding. - Objective MAR Reviewed: Yes Vital Signs & Weight: Vital Signs (12 hours) Temp Pulse Resp BP BP Pulse Ox 01/11/18 08:00 98.1 F 93 18 01/11/18 07:54 98.1 F 93 18 94/58 L 94 L 01/11/18 04:00 98.7 F 87 20 99/62 95 Weight Admit Weight 85.82 kg Weight 85.82 kg I&O: 01/10/18 01/11/18 01/12/18 06:59 06:59 06:59 Intake Total 1825 Balance 1825 Result Diagrams: 01/11/18 04:09 01/11/18 04:10 <Emanuel Wood M - Last Filed: 01/11/18 09:32> - Objective Vital Signs & Weight: Vital Signs (12 hours) Temp Temp Pulse Pulse Pulse Pulse Resp 01/11/18 09:40 98.1 F 97 97 98 01/11/18 08:00 98.1 F 93 18 01/11/18 07:54 98.1 F 93 18 01/11/18 04:00 98.7 F 87 20 Resp Resp Resp BP BP BP BP 01/11/18 09:40 18 18 18 92/56 L 87/48 L 97/44 L 01/11/18 08:00 01/11/18 07:54 94/58 L 01/11/18 04:00 BP Pulse Ox Pulse Ox Pulse Ox Pulse Ox 01/11/18 09:40 97 97 100 01/11/18 08:00 01/11/18 07:54 94 L 01/11/18 04:00 99/62 95 Weight Admit Weight 85.82 kg Weight 85.82 kg I&O: 01/10/18 01/11/18 01/12/18 06:59 06:59 06:59 Intake Total 1825 0 Balance 1825 0 Result Diagrams: 01/11/18 09:47 01/11/18 04:10 <Junior Soni R - Last Filed: 01/11/18 11:05> Phys Exam - Physical Examination Constitutional: NAD HEENT: moist MMs Neck: no nodes Respiratory: no wheezing, no rales, no rhonchi Cardiovascular: RRR, no significant murmur Gastrointestinal: soft, no distention, positive bowel sounds Musculoskeletal: no edema Neurological: non-focal Lymphatic: no nodes Psychiatric: normal affect <Emanuel Wood - Last Filed: 01/11/18 09:32> Dx/Plan (1) GI bleed Code(s): K92.2 - GASTROINTESTINAL HEMORRHAGE, UNSPECIFIED Status: Acute Plan: Patient has no further bleeding, vital stable, not symptomatic at this time. Plan, follow up with GI if there is any further work up needed as inpatient. (2) Cirrhosis Code(s): K74.60 - UNSPECIFIED CIRRHOSIS OF LIVER Status: Chronic Plan: Chronic issue. likely related tsteatohepatitis. Patient has GI bleed, so on levaquin prophylaxis. (3) Steatohepatitis Code(s): K75.81 - NONALCOHOLIC STEATOHEPATITIS (SINGH) Status: Acute Plan: Known chronic issue that is likely cause of patient's cirrhosis. (4) Hyponatremia Code(s): E87.1 - HYPO-OSMOLALITY AND HYPONATREMIA Status: Acute Plan: Hyponatremia has improved to 123. Plan for fluid restriction of 1500 ml/day. <Monica Woodoi Suzanne - Last Filed: 01/11/18 09:32> (1) GI bleed Code(s): K92.2 - GASTROINTESTINAL HEMORRHAGE, UNSPECIFIED Status: Acute (2) Cirrhosis Code(s): K74.60 - UNSPECIFIED CIRRHOSIS OF LIVER Status: Chronic (3) Steatohepatitis Code(s): K75.81 - NONALCOHOLIC STEATOHEPATITIS (SINGH) Status: Acute <Junior Soni - Last Filed: 01/11/18 11:05> Attending Addendum - Attending Addendum Date/Time: 01/11/18 9107 I personally evaluated the patient and discussed the management with Dr. Wood. I agree with the History, Examination, Assessment and Plan documented above with any addition or exceptions noted below. At time of our initial encounter, patient was in restroom. Soon afterward, we were called for decompensation. Code Moises was called due to presence of large bloody bowel movement, increase in abdominal pain, and unstable vital signs. Blood pressures initially 60s systolic. He was bolused 1L of fluids and placed in trendelenburg with some improvement in BP to 90/50s. Stat labs obtained and patient transferred to CCU. We ordered stat 4 units of blood, 2 of which to be uncrossmatched and infused immediately. Hgb returned with large drop to 5.8. He is being started on Protonix and Octreotide drip. KUB obtained and it is difficult to visualize whether there is free air under diaphragm or if it is poorly placed rib marking. GI is on board and aware and plans for urgent/ emergent scope as soon as patient's vital signs are more stable. 45 minutes critical time during care and stabilization of patient. <Junior Soni - Last Filed: 01/11/18 11:05>
[2018-01-11] MEDS ORDERED: Octreotide Acetate 1,250 MCG in Sodium Chloride 0.9% 250 ML 250 ML IVPB SCH (10:15)
[2018-01-11 10:28] LABS: Hemoglobin 5.6 g/dL (14.0-18.0)
[2018-01-11] MEDS ORDERED: Sodium Chloride 0.9% 1,000 ML IV SCH (10:30)
--- NOTE | 2018-01-11 10:58 | RAD ---
ABDOMEN 1 VIEW: HISTORY: Ulcer with abdominal distention. COMPARISON: None. FINDINGS: Evaluation for comparison without an upright examination. No dilated air-filled loops of large or sm all bowel. Advanced facet change of the lower lumbar spine. IMPRESSION: 1. Likely large-volume ascites in the abdomen. 2. No evidence of bowel obstruction. POS: [facility]
[2018-01-11] MEDS: Pantoprazole 80 MG, Admixture Fee 1 EACH in Sodium Chloride 0.9% 100 ML IVP SCH ×2 (11:14→21:38)
--- NOTE | 2018-01-11 12:30 | CON ---
DATE OF CONSULTATION: 01/11/2018 SERVICE: Pulmonary Medicine. REASON FOR CONSULTATION: ICU patient. HISTORY OF PRESENT ILLNESS: The patient is a 62-year-old white male with past medical history significant for cirrhosis. He was in his usual state of health until he started passing bright red blood per rectum. He was thought to have a lower gastrointestinal source. That being said, doubleheader demonstrated no evidence of lower gastrointestinal source, but he did have a duodenal ulcer that appeared to have some sort of a fresh vessel. One actively bleeding at that time. Either way, the bleeding stopped. He remained hemodynamically stable until he started having more bright red blood per rectum. He dropped blood pressure. He became a little bit hemodynamically unstable and had some orthostasis. As such, he is brought down to the unit. We are in the process of giving him blood, he already got a liter of fluid. He cannot provide much in the way of additional elements of the history, but ever since the fluid went in, he started feeling a little bit better. He denies any current fevers or chills. There has been no nausea, vomiting or diarrhea, otherwise. PAST MEDICAL HISTORY: 1. Cirrhosis. 2. Coronary artery disease. 3. Hypertension. 4. Dyslipidemia. PAST SURGICAL HISTORY: 1. Percutaneous coronary intervention. 2. Herniorrhaphy. 3. Liver biopsy. SOCIAL HISTORY: Negative for current alcohol, tobacco or illicit drug use. He has no exposure to chemicals, dust asbestos or tuberculosis. FAMILY HISTORY: Noncontributory. ALLERGIES: PENICILLIN. MEDICATIONS: List of his inpatient medications were reviewed. No specific updates were made at this time. REVIEW OF SYSTEMS: General, head, ears, eyes, nose, throat, cardiovascular, respiratory, GI, , musculoskeletal, neurologic and skin is negative as mentioned in the HPI. PHYSICAL EXAMINATION: VITAL SIGNS: Afebrile, pulse 93, blood pressure 94/58, respirations 18, saturation 94% on room air. GENERAL: The patient is awake, alert, in no apparent distress. LUNGS: Decent air entry. There is no prolonged expiratory phase. Dependent crackles are minimal. No rhonchi or wheezing appreciated. HEART: Normal rate and regular. ABDOMEN: It is distended with a little bit of ascites. No rebound is present. GENITOURINARY: No Ta. NEUROLOGIC: Grossly nonfocal. LABORATORY DATA: Hemoglobin 5.6 this morning. Morning labs; however, demonstrated hemoglobin of 8.1. INR 1.9. Sodium 123. Basic metabolic profile is otherwise unremarkable. Total bilirubin 1.9, AST and ALT are gently up trending. Urinalysis is unremarkable. IMAGING DATA: 1. Recent EGD demonstrated large duodenal ulcer without evidence of visible vessel or active bleeding. This was biopsied. He also had grade I-II esophageal varices without stigmata of recent hemorrhage. Portal hypertensive gastropathy was also noted. 2. Abdominal x-ray demonstrates no evidence of free air. ASSESSMENT: 1. Acute blood loss anemia. 2. Hemorrhagic shock. 3. Upper gastrointestinal bleed secondary to suspected varices and/or duodenal ulcer. 4. Cirrhosis with associated coagulopathy. DISCUSSION AND PLAN: We will give the patient 3 or 4 units of FFP. He is already getting 2 units of blood. Agree with fluid resuscitation. GI has been notified and are planning on doing an EGD as soon as possible. Pulmonary or Critical Care will continue to follow along in this location. Once he is more hemodynamically stabilized with level hemoglobins over the next 1-2 days, we will consider transitioning him back to the floor again. 70 minutes have been devoted to this patient in various activities. I personally reviewed all imaging studies and laboratory data noted within this document. For fifty percent of this time, I was interacting with the patient at the bedside or coordinating care with the care team. For the remainder of the time I was immediately available to the patient in the hospital unit. MANOLO
[2018-01-11] MEDS ORDERED: Midazolam HCl 2 mg/2 ml Vial ONE (13:30)
--- NOTE | 2018-01-11 14:02 | OP ---
DATE OF PROCEDURE: 01/11/2018 SURGEON: Alec Mathis M.D. PROCEDURE: Esophagogastroduodenoscopy. PREOPERATIVE DIAGNOSES: 1. Gastrointestinal hemorrhage. The patient was scoped yesterday, had a large duodenal ulcer involv ing the superior, anterior aspect and posterior aspect of the apex of duodenal bulb. He had a biopsy of this, it has an atypical appearance. There was no active bleeding, it was white based at that ti me. Today, has dropped his hemoglobin from 8 to 5 with a large bloody stool. He was brought to the ICU a nd resuscitated. INR is 1.9, he has been given 1 unit of FFP, he was given 3 units of blood. POSTOPERATIVE DIAGNOSES: 1. Large ulcer with visible vessel in the base anteriorly. There was slightly oozing but no pulsati le bleeding. The decision was made to inject 1:10,000 epinephrine, this injected freely which makes me concerned that this is a very thin-walled ulcer, at this point in time is high risk for perforatio n. It was not burned for this reason. A Hemoclip was placed over the vessel. 2. Old blood in the stomach. The stomach could not be fully evaluated because there was food there. 3. NG tube was left in place. The patient was left intubated and brought back to the ICU. He is at high risk for rebleeding. 4. Grade 2-3 varices, nonbleeding in the esophagus. RECOMMENDATIONS: 1. Continue IV Protonix drip. 2. Continue octreotide drip. 3. Continue IV antibiotics. 4. H&H q.8h. 5. Repeat labs in the morning. 6. Consider paracentesis therapeutic tomorrow depending on what the patient's hemoglobin is doing. 7. If the patient has recurrent bleeding, he may need operative intervention, which he will be at ve ry high risk for. ANESTHESIA: General endotracheal anesthesia. PROCEDURE IN DETAIL: The patient was informed of the risks and benefits and possible complications o f endoscopy including perforation, bleeding, reactions to medication and aspiration, informed consent was obtained. The patient was brought to endoscopy suite where he was sedated in gradual fashion. Once he was comfortable, a bite block was placed in the incisural orifice. The endoscope was advance d through the esophagus, stomach and second and third portion of duodenum and slowly removed. The en doscope was advanced through the esophagus, there was grade 2-3 varices with some red tyron sign, but no active bleeding or bleeding signs. The stomach was entered with old food. There was blood in the antrum. The retroflexion showed some mild erosions, some old blood in the stomach and food, but the stomach could not be evaluated for varices or ulcer secondary to amount of food present. No ulcers were seen in it yesterday. The duodenal bulb was entered, visible vessels present. There was some c lot over the ulcer which was irrigated away. A small vessel was oozing. This was injected with 1:1 0,000 epinephrine and clipped. The scope was removed. The patient tolerated the procedure well with no complications.
[2018-01-11] MEDS ORDERED: Propofol 1,000 MG/100 ML VIAL IV ONE (14:44)
[2018-01-11] MEDS ORDERED: Ondansetron HCl/PF 4 MG/2 ML Vial ONE (14:58)
[2018-01-11] MEDS ORDERED: PROPOFOL 200 MG/20 ML VIAL ONE (14:58)
[2018-01-11] MEDS ORDERED: Vecuronium 10 MG VIAL ONE (14:58)
[2018-01-11] MEDS ORDERED: PHENYLEPHRINE-NS 100 MCG/ML 10 ML SYRINGE ONE (14:58)
[2018-01-11] MEDS ORDERED: Lacri-Lube Opth Oint 3.5 GM TUBE EA EYE PRN (15:00)
[2018-01-11] MEDS ORDERED: Ventilator Sedation Protocol 1 EACH FS SCH (15:00)
[2018-01-11] MEDS ORDERED: Morphine 4 MG/ML VIAL SLOW IVP PRN (15:22)
[2018-01-11] MEDS ORDERED: Propofol BOLUS 1,000 MG/100 ML VIAL IV PRN (15:22)
[2018-01-11] MEDS ORDERED: Fentanyl BOLUS 250 ML IVPB PRN (15:22)
[2018-01-11] MEDS ORDERED: Lorazepam 2 MG/ML VIAL SLOW IVP PRN (15:22)
[2018-01-11] MEDS ORDERED: fentaNYL Citrate/PF 2,000 MCG in Sodium Chloride 0.9% 60 ML IV SCH (15:30)
[2018-01-11 16:33] LABS: Actual Bicarbonate (HCO3a) 19.5 mEq/L (22-28); Base Excess (BEa) -8.4 mEq/L (-2.0 to +3.0); CO2 Tension 51.4 mmHg (35.0-45.0); Hematocrit-ABG 32.5 % (42.0-52.0); Hemoglobin (Hb) 9.7 g/dL (14.0-18.0); O2 Tension (PaO2) 76.4 mmHg (> 80.0)
[2018-01-11 16:34] LABS: Calcium, Ionized 1.1 mmol/L (1.12-1.30)
[2018-01-11 16:35] LABS: Puncture Site L.R.
[2018-01-11 18:09] LABS: Hemoglobin 9.6 g/dL (14.0-18.0); Platelet Count 211 thou/uL (130-400)
[2018-01-11 20:42] LABS: Mean Corpuscular HGB CONC 35.5 g/dL (32.0-36.0); Mean Corpuscular Hemoglobin 34.4 pg (27.0-31.0); Mean Corpuscular Volume 96.7 fl (80.0-94.0); Mean Platelet Volume 5.8 fL (7.4-10.4); Platelet Count 148 thou/uL (130-400); RBC Distribution Width 15.6 % (11.5-14.5); Red Blood Cell (RBC) Count 2.33 mill/uL (4.70-6.10); White Blood Cell (WBC) Count 20.2 thou/uL (4.8-10.8)
[2018-01-11 20:44] LABS: INR-International Normal Ratio 2.6; Prothrombin Time 29.1 SEC (12.0-14.7)
[2018-01-11] MEDS ORDERED: Senokot 8.6 MG TAB PO SCH (21:00)
[2018-01-11 21:04] LABS: MDiff Complete? YES
[2018-01-11 21:05] LABS: Band 1 % (5-11); Lymphocytes 5 % (21-51); Monocytes 6 % (0-10); Myelocyte 3 % (0-0); Neutrophil 85 % (42-75); Polychromasia SLIGHT = 2-3 cells (100X) (0-2/hpf)
[2018-01-11] MEDS ORDERED: Norepinephrine 8 MG/0.9% NS 250 ML ONE (22:26)
[2018-01-12] MEDS: Pantoprazole 80 MG, Admixture Fee 1 EACH in Sodium Chloride 0.9% 100 ML IVP SCH ×3 (02:14→17:45)
[2018-01-12] MEDS: Octreotide Acetate 1,250 MCG in Sodium Chloride 0.9% 250 ML 250 ML IVPB SCH (02:23)
--- NOTE | 2018-01-12 05:44 | OP ---
DATE OF PROCEDURE: 01/12/2018 SERVICE: Pulmonary Medicine PROCEDURE: Left-sided 8.5 Bulgarian triple lumen IJ central venous catheter placement under ultrasound guidance. CONSENT: The risks and benefits of this procedure were explained to the patient's medical decision edie sheldoner. All questions were answered and alternative options explained. STAFF PHYSICIAN: Nathaniel Cobian M.D. MEDICATIONS USED: None. PREPROCEDURE DIAGNOSES: 1. Acute blood loss anemia. 2. Hemorrhagic shock. POSTPROCEDURE DIAGNOSES: 1. Acute blood loss anemia. 2. Hemorrhagic shock. DESCRIPTION OF PROCEDURE: Vital sign monitoring was accomplished by noninvasive hemodynamic monitori ng, pulse oximetry and telemetry. DESCRIPTION OF PROCEDURE: A timeout was performed and the patient was positively identified by name and date of . The procedure site was marked. The patient was placed in supine position and the left neck was prepped and draped in sterile fashion. The course of the IJ vein was mapped with ultr asound. The cannulation needle was placed in the internal jugular vein under direct ultrasound lauren nce with return of dark red, nonpulsatile blood on the first attempt. A J-shaped guidewire was threa ded through the cannulation needle without difficulty. A small incision was made. The dilator and 8 .5 Bulgarian triple-lumen central venous catheter were serially threaded over the guidewire. The cathet er was sutured to the skin at 18 cm with 3-0 silk sutures x4. All 4 ports withdrew and flushed witho ut difficulty. A sterile dressing was applied. The procedure was terminated. Post-procedure chest x-ray demonstrated good location for the tip of the catheter. ESTIMATED BLOOD LOSS: 2 mL. COMPLICATIONS: None.
[2018-01-12 05:58] LABS: INR-International Normal Ratio 1.9; Prothrombin Time 22.5 SEC (12.0-14.7)
[2018-01-12 06:04] LABS: #Eosinphils 0.3 thou/uL (0.0-0.7); #Lymphocytes 3.3 thou/uL (1.20-3.40); #Monocytes 1.8 thou/uL (0.11-0.59); #Neutrophils 13.4 thou/uL (1.40-6.50); %Basophils 0.1 % (0.0-1.0); %Eosinophils 1.7 % (0.0-10.0); %Lymphocytes 17.7 % (21.0-51.0); %Monocytes 9.6 % (0.0-10.0); %Neutrophils 70.9 % (42.0-75.0); Mean Corpuscular Hemoglobin 33.2 pg (27.0-31.0); Mean Corpuscular Volume 94.8 fl (80.0-94.0); Platelet Count 159 thou/uL (130-400); RBC Distribution Width 15.2 % (11.5-14.5); Red Blood Cell (RBC) Count 3.02 mill/uL (4.70-6.10); White Blood Cell (WBC) Count 18.8 thou/uL (4.8-10.8)
[2018-01-12 06:17] LABS: ALT (SGPT) 65 U/L (8-55); AST (SGOT) 97 U/L (5-34); Albumin 2.2 g/dL (3.4-4.8); Alkaline Phosphatase 110 U/L (40-150); Anion Gap 10 mmol/L (10-20); BUN (Urea Nitrogen) 34 mg/dL (8.4-25.7); Bilirubin, Total 2.6 mg/dL (0.2-1.2); Calc. Creatinine Clearance 95 mL/min (70-130); Calcium 7.4 mg/dL (7.8-10.44); Carbon Dioxide 18 mmol/L (23-31); Chloride 103 mmol/L (98-107); Estimated GFR-MDRD 78; Glucose 106 mg/dL (80-115); Potassium 5.4 mmol/L (3.5-5.1); Protein, Total 4.2 g/dL (5.8-8.1); Sodium 126 mmol/L (136-145)
--- NOTE | 2018-01-12 07:24 | PRG ---
DATE OF SERVICE: 01/11/2018 SUBJECTIVE: After Mr. Daugherty's endoscopy this afternoon, we left him intubated. He had a little bi t of clot in the duodenum and some signs of fresh blood in the stomach, although no bleeding sites we re identified in the stomach. Although had varices, there was no evidence of variceal bleeding, red tyron signs, or clot. There was food in the stomach. He was left intubated. An NG tube was left in place. He had 1 bowel movement after returned to the ICU, which Dr. Cobian saw him and felt it was old blood. His hemoglobin was checked at that time. After surgery, it was 9 and 5.6 at 09:47 this m [facility]. Resuscitation had taken place with 3 units of blood and 1 unit of FFP. His pulse was 83, bl ood pressures in the low 90s to low 80s. Urine output 15-20 mL an hour. At that time, I noticed sammy t his octreotide had been stopped and I asked the nurse to go ahead restart that. We rechecked the h emoglobin at 1800 hours and it was 9.6 and stable. We called back this evening to check on the patie nt and his nurse noted his systolic pressures were running in the 60s or 70s. I asked them to give h im a 500 mL bolus, transfuse 1 unit of blood. I concerned that his abdomen was more tense, I asked h im to get a noncontrast CT; those 2 things are pending. His hemoglobin came back at 2017 hours at 8. He is receiving the unit of blood now. His white count remains elevated at 20,000, platelets 148. INR 2.6. On exam, he is sedated and intubated. There is no blood in the NG tube. He has had no fu rther bowel movements. OBJECTIVE: VITAL SIGNS: Temperature is 97, respirations 13, sats 100%, blood pressure 82/41, heart rate 79. Ur ine output at 8:00 was 40 mL an hour. GENERAL: He is somewhat pale. LUNGS: Clear. HEART: Regular rate and rhythm. ABDOMEN: Distended with ascites. It was soft and nontender. There is no evidence of bruising. The re is no gross tenderness. There is a fluid wave present. EXTREMITIES: Reveal trace edema. LABORATORY STUDIES: BUN and creatinine this morning were 24 and 0.72, bilirubin 1.9, AST and ALT 92 and 56. Other labs from previous outpatient evaluations have been notable for a normal AFP. Imaging showed no liver masses. Abdominal ultrasound showed normal Dopplers in September. CAT scan in 2016 showed cirrhotic liver with no masses. ASSESSMENT: 1. Persistent hypotension. This may be related to process of cirrhosis. He shows no signs of activ e bleeding at this time with relatively stable hemoglobin and has had an appropriate response to olson sfusions ordered today, coming up to around between 8 and 9 with 3 units of blood for hemoglobin of 5 .6. 2. Hypotension, more than expected with his cirrhosis. He is being covered with antibiotics for spo ntaneous bacterial peritonitis. We will ask Dr. Cobian to come and put a central line in the case w e need to use pressors and we are going to get a CAT scan without contrast to look for free air in th e abdomen in light of his large duodenal ulcer. In light of the elevated INR, we will go ahead and g charmaine him another unit of FFP, which will help with perfusion. Continue octreotide drip, continue Prot thee drip. If there are signs of acute bleeding, we will consider repeat endoscopy. If there are si gns of free air or intraperitoneal blood, we will consult General surgery. Issues were discussed wit h ICU staff, ICU physician and the family. His prognosis is very poor at this point with a Child C c irrhotic status.
[2018-01-12] MEDS: Propofol 1,000 MG/100 ML VIAL IV PRN ×2 (08:16→20:04)
--- NOTE | 2018-01-12 08:47 | RAD ---
CHEST 1 VIEW: HISTORY: Intubated. COMPARISON: 12/19/17. FINDINGS: The cardiac silhouette is within normal limits. Pulmonary vasculature is accentuated by shallow insp iration. Mild bibasilar atelectasis. Mediastinum is midline. The tip of an endotracheal catheter o verlies the thoracic inlet. The tip of a left internal jugular central venous catheter overlies the superior vena cava. Nasogastric tube descends to the abdomen. No evidence of pneumothorax. air sampling and monitoring leads overlie the chest. IMPRESSION: Endotracheal catheter and left central venous catheter are in good radiographic position. POS: [facility]
--- NOTE | 2018-01-12 09:49 | PDOC.FM ---
- Subjective Subjective: Patient intubated. Patient had bloody BM post EGD. His pressure dropped yesterday into 70's systolic. He was started with 2PRBC, 1 FFP, and central line placed with vassopressin started. His BP noble stabilized since then and has no further bleeding noted. - Objective MAR Reviewed: Yes Vital Signs & Weight: Vital Signs (12 hours) Temp Pulse Resp BP Pulse Ox 01/12/18 08:00 14 01/12/18 07:17 98.5 F 72 15 95 01/12/18 07:00 98.5 F 01/12/18 06:18 70 102/53 L 01/12/18 06:00 15 01/12/18 04:00 17 01/12/18 03:58 98.4 F 71 22 H 01/12/18 02:00 15 01/12/18 01:17 71 01/12/18 00:00 98.2 F 16 01/11/18 23:09 69 98/53 L 01/11/18 22:00 15 01/11/18 21:52 97.4 F L 01/11/18 21:50 98.3 F Weight Admit Weight 85.82 kg Weight 85.2 kg Most Recent Monitor Data Heart Rate from ECG 63 NIBP 93/53 NIBP BP-Mean 72 Respiration from ECG 15 SpO2 95 I&O: 01/11/18 01/12/18 01/13/18 06:59 06:59 06:59 Intake Total 1825 4515.5 0 Output Total 488 55 Balance 1825 4027.5 -55 Result Diagrams: 01/12/18 05:30 01/12/18 05:30 <Emanuel Wood M - Last Filed: 01/12/18 09:47> - Objective Vital Signs & Weight: Vital Signs (12 hours) Temp Pulse Resp BP Pulse Ox 01/12/18 14:00 17 01/12/18 12:45 70 97/47 L 01/12/18 12:00 96.5 F L 18 01/12/18 10:00 17 01/12/18 08:00 14 01/12/18 07:17 98.5 F 72 15 95 01/12/18 07:00 98.5 F 01/12/18 06:18 70 102/53 L 01/12/18 06:00 15 01/12/18 04:00 17 06/08/18 03:58 98.4 F 71 22 H Weight Admit Weight 85.82 kg Weight 85.2 kg Most Recent Monitor Data Heart Rate from ECG 66 NIBP 95/44 NIBP BP-Mean 76 Respiration from ECG 17 SpO2 99 I&O: 01/11/18 01/12/18 01/13/18 06:59 06:59 06:59 Intake Total 1825 4515.5 0 Output Total 488 180 Balance 1825 4027.5 -180 Result Diagrams: 01/12/18 13:32 01/12/18 05:30 <Junior Soni - Last Filed: 01/12/18 14:29> Phys Exam - Physical Examination Constitutional: NAD HEENT: moist MMs Respiratory: no wheezing, no rales, no rhonchi Cardiovascular: RRR Gastrointestinal: soft Distended but soft Musculoskeletal: no edema Sedated with propfol Deviation from normal: Sedated Deviation from normal: Old bruises secondary from cirrhosis <Emanuel Wood M - Last Filed: 01/12/18 09:47> Dx/Plan (1) Hemorrhagic shock Code(s): R57.8 - OTHER SHOCK Status: Acute Plan: Hemorrhagic shock after GI bleed. Received 5 PRBC and 3 FFP and pressor support. At this time, BP is stable with systolics in the 100's, not tachycardic Will monitor, transfuse again as needed. (2) GI bleed Code(s): K92.2 - GASTROINTESTINAL HEMORRHAGE, UNSPECIFIED Status: Acute Plan: Has received 5 PRBC and 3 FFP total. Her hgb is stable at the moment at 10 Plan to follow with vitals, treat as needed with pressors and fluid/blood infusion as needed. Follow with GI recs.. (3) Cirrhosis Code(s): K74.60 - UNSPECIFIED CIRRHOSIS OF LIVER Status: Chronic Plan: Chronic issue. likely related to steatohepatitis. Patient has GI bleed, so on levaquin prophylaxis. Likely cause of ascities and propensity for bleeds (4) Steatohepatitis Code(s): K75.81 - NONALCOHOLIC STEATOHEPATITIS (SINGH) Status: Acute Plan: Known chronic issue that is likely cause of patient's cirrhosis. (5) Hyponatremia Code(s): E87.1 - HYPO-OSMOLALITY AND HYPONATREMIA Status: Acute Plan: Hyponatremia has improved to 126. Patient is receiving fluid KVO at this moment to prevent worsening of ascities from cirrhosis and hypontremia . <Emanuel Wood M - Last Filed: 01/12/18 09:47> (1) GI bleed Code(s): K92.2 - GASTROINTESTINAL HEMORRHAGE, UNSPECIFIED Status: Acute (2) Cirrhosis Code(s): K74.60 - UNSPECIFIED CIRRHOSIS OF LIVER Status: Chronic (3) Steatohepatitis Code(s): K75.81 - NONALCOHOLIC STEATOHEPATITIS (SINGH) Status: Acute <Junior Soni - Last Filed: 01/12/18 14:29> Attending Addendum - Attending Addendum Date/Time: 01/12/18 8693 I personally evaluated the patient and discussed the management with Dr. Wood. I agree with the History, Examination, Assessment and Plan documented above with any addition or exceptions noted below. Patient continues on ventilator support. His Hgb is improved as is his BP after an additional 2 units of pRBCs overnight. He has been weaned off pressors. Continue protonix and octreotide drip for his bleeding duodenal ulcer. Await further recs from GI. He has had minimal urine output, but is off fluids at this time. If he continues to be NPO on vent, will need some fluids to keep him euvolemic as he is not a candidate for tube feeding with this severe ulcer. Coags improved with FFP. COntinue to trend blood counts and coags. Further mgmt per GI. <Junior Soni - Last Filed: 01/12/18 14:29>
--- NOTE | 2018-01-12 12:08 | CT ---
PRELIMINARY REPORT/[facility]/EMERGENCY AFTER HOURS PROCEDURE: EXAM: CT Abdomen and Pelvis Without Intravenous Contrast EXAM DATE/TIME: Exam ordered 01/12/2018 12:43 AM CLINICAL HISTORY: 62 years old, male; Condition or disease; Other: Cirroosis TECHNIQUE: Axial computed tomography images of the abdomen and pelvis without intravenous contrast. Coronal refo rmatted images were created and reviewed. COMPARISON: No relevant prior studies available. FINDINGS: Lung bases: See below. Pleural space: There are small bilateral pleural effusions with bibasilar lung consolidation/atelecta sis. ABDOMEN: Liver: There is nodularity of the liver contour and the liver appears shrunken compatible with cirrho sis. Nonspecific liver calcifications are noted. Gallbladder and bile ducts: The gallbladder is normal. There is no evidence of biliary ductal dilatio n. No calcified stones. Pancreas: The pancreas appears normal. No ductal dilation. Spleen: The spleen is normal. Adrenals: The adrenal glands are normal. Kidneys and ureters: The kidneys appear normal. No obstructing stones. No hydronephrosis. Stomach and bowel: The colon is normal. There is no evidence of intestinal perforation or obstruction. No mucosal thickening. PELVIS: Appendix: No findings to suggest acute appendicitis. Bladder: The bladder is decompressed by a Ta catheter but is otherwise normal. There is a small am ount of intraluminal air consistent with instrumentation. No stones. Reproductive: Unremarkable as visualized. ABDOMEN and PELVIS: Intraperitoneal space: There is massive abdominopelvic ascites. No free air. Bones/joints: No acute fracture. No dislocation. Soft tissues: Normal. Vasculature: The vasculature demonstrates diffuse moderate atherosclerotic calcification. No abdomina l aortic aneurysm. Lymph nodes: Normal. No enlarged lymph nodes. Tubes, lines and devices: A nasogastric tube lies with its tip in the stomach. IMPRESSION: Liver cirrhosis with massive ascites. Thank you for allowing us to participate in the care of your patient. Dictated and Authenticated by: Hang Navas MD 01/12/2018 1:44 AM Central Time ([place] & [place]) FINAL REPORT NONCONTRAST CT ABDOMEN AND PELVIS: Date: 01/11/18 HISTORY: Cirrhosis. COMPARISON: 06/12/17. FINDINGS: Nasogastric tube is noted in p lace with tip in the region of the pylorus of the stomach. There are small bilateral pleural effusions with bibasilar areas of consolidation which may be relate d to passive atelectasis, although pneumonia cannot be excluded. Vascular calcifications are seen in the coronary arteries, as well as involving the abdominal aorta a nd iliac arteries. There is a large amount of intraperitoneal free fluid. Nodular peripheral contour of the liver is again seen, likely attributable to cirrhosis. The spleen i s not enlarged. There are calcifications again seen in the liver, which may be related to prior granu lomatous disease. There is linear calcification seen in the spleen, which could be related to prior injury. The pancreas, bilateral adrenal glands, and kidneys demonstrate a grossly normal nonenhanced CT appea zahira. Urinary bladder is completely decompressed with Ta catheter in place. Colonic diverticulosis is again present. Gallbladder was distended on prior exam, but gallbladder distention has improved. There is mild incre ased density seen in the gallbladder, which could be related to a small amount of sludge. There are serpiginous vessels in the region of the gastrohepatic ligament, probably related to varice s. No other interval change from the prior exam. The dilated loops of small bowel previously seen are le ss prominent on today's exam. IMPRESSION: 1. Interval development of a large amount of ascites. 2. Interval development of small bilateral pleural effusions with bibasilar areas of consolidation, which may be related to passive atelectasis, although pneumonia is a differential consideration. 3. Evidence of cirrhosis. There was enlargement of the spleen on the prior exam, but the spleen is n ot enlarged on today's exam. There are findings suggestive of small esophageal varices related to por rachell hypertension. 4. Colonic diverticulosis. 5. Wedge-shaped compression fracture of indeterminate age involving the T7 vertebral body. Degenerat charmaine changes are seen throughout the remainder of the lumbar spine with postoperative changes of lower lumbar spine. 6. Findings are in agreement with the preliminary report by [facility]. CODE QA POS: [facility]
--- NOTE | 2018-01-12 13:11 | PRG ---
DATE OF SERVICE: 01/12/2018 SERVICE: Pulmonary Medicine INTERVAL HISTORY: The patient is doing fine from a respiratory standpoint. He is still breathing co mfortably. He had some low blood pressures last night. He ended up getting a line and pressors were initiated. Blood pressures remain improved. Urine output improved as well. The patient had no overnight events. PHYSICAL EXAMINATION: VITAL SIGNS: Afebrile with low temperature of 96.5, pulse 70, blood pressure 197/47, respirations 13 , saturation 95% on room air. GENERAL: The patient is awake, alert, in no apparent distress. LUNGS: Excellent air entry. There are dependent crackles. No prolonged expiratory phase or wheezin g is appreciated. HEART: Normal rate, regular. ABDOMEN: Soft. Distended with ascites. There is no rebound or guarding. Bowel sounds are active. GENITOURINARY: Ta catheter in place. NEUROLOGIC: Grossly nonfocal. LABORATORY DATA: WBC 18.8, hemoglobin 10.0 and stable, platelets 159,000. INR 1.9. PH 7.20, pCO2 5 1, pO2 76. Multiple adjustments were made to the ventilator following this. Sodium 126 and improvin g, potassium 5.4. Basic metabolic profile is otherwise unremarkable. AST and ALT are roughly stable . Bilirubin is up trending significantly. Urinalysis is negative. IMAGING: Chest x-ray demonstrates endotracheal tube is in good radiographic position. There is a ne w left-sided IJ central venous catheter that terminates in good position. Low lung volumes are demon strated. ASSESSMENT: 1. Acute hypoxic respiratory failure. 2. Acute blood loss anemia. 3. Hemorrhagic shock, resolved. 4. Upper gastrointestinal bleed secondary to duodenal ulcer. 5. Cirrhosis with associated coagulopathy. DISCUSSION AND PLAN: We will initiate tube feeds. Potassium is elevated and so we will give a dose of Kayexalate. IV fluids will be interrupted. Pulmonary Critical Care will continue to follow along . He will be ready for extubation hopefully, in 24-48 hours. Once his blood pressures can tolerate, he will need to get back on the spironolactone and Lasix as soon as possible. CRITICAL CARE TIME: 30 minutes.
[2018-01-12 13:38] LABS: Hemoglobin 9.9 g/dL (14.0-18.0)
[2018-01-12] MEDS ORDERED: Sodium Bicarbonate Tab 325 MG TAB PER TUBE PRN (13:38)
[2018-01-12] MEDS ORDERED: Pancrelipase DR 12000 1 CAP FS PRN (13:38)
[2018-01-12] MEDS: Albumin 25% 25 GM/100 ML BOT IVPB SCH ×2 (16:18→23:57)
[2018-01-13] MEDS: Propofol 1,000 MG/100 ML VIAL IV PRN (01:59)
--- NOTE | 2018-01-13 02:31 | PRG ---
DATE OF SERVICE: 01/12/2018 SUBJECTIVE: Mr. Daugherty remains intubated. His CAT scan last night showed no signs of free air. I talked to ICU staff about this after this was done last night. MEDICATIONS: Reveals p.r.n. fentanyl, lactulose and started levofloxacin 500 mg daily, octreotide drip, continue Zofran p.r.n., he has been started on tube feeds, propofol for sedation p.r.n., Protonix drip. PHYSICAL EXAMINATION: VITAL SIGNS: Blood pressure 95/54 to 102/53, pulse 62, respirations 16 and Ins now 4515 and output 488. Gastric drainage minimal. Urine output 35 to 15 mL an hour. GENERAL: Patient is intubated. HEENT: He has muscle wasting in temporal areas. NECK: Supple. LUNGS: Clear. ABDOMEN: Protuberant, but not tense, shifting dullness present. EXTREMITIES: Reveal trace edema. LABORATORY STUDIES: White count 18,800, hemoglobin 10.0, platelet count is 159. Sodium 126, potassium 5.4, BUN and creatinine 34 and 0.97, bilirubin is 2.6, AST and ALT are 97 and 65, alkaline phosphatase is 110, protein 4.2, albumin 2.2. INR is 1.9. ASSESSMENT AND PLAN: 1. Gastrointestinal hemorrhage. No signs of overt bleeding since second endoscopy yesterday. 2. Hypertension overnight. This is multifactorial related to cirrhosis and gastrointestinal bleeding. There were no signs of perforation. 3. 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 4. Leukocytosis, likely related to bleeding, cannot rule out SBP. He is on empiric Levaquin. 5. Ulcer, it is very concerning that developed while he was on PPI therapy. Biopsies of the ulcer are pending. RECOMMENDATIONS: 1. Continue IV Protonix. 2. Continue IV octreotide. 3. Monitor INR and hemoglobin. If INR rises will correct with FFP 4. The patient has been started on nutrition. We will start on albumin q.8 hour help prevent hepatorenal. MTDD
[2018-01-13] MEDS: Pantoprazole 80 MG, Admixture Fee 1 EACH in Sodium Chloride 0.9% 100 ML IVP SCH ×3 (03:45→23:32)
[2018-01-13 04:21] LABS: INR-International Normal Ratio 2.1; Prothrombin Time 23.9 SEC (12.0-14.7)
[2018-01-13 04:30] LABS: ALT (SGPT) 52 U/L (8-55); AST (SGOT) 74 U/L (5-34); Albumin 2.8 g/dL (3.4-4.8); Alkaline Phosphatase 99 U/L (40-150); Anion Gap 10 mmol/L (10-20); BUN (Urea Nitrogen) 40 mg/dL (8.4-25.7); Bilirubin, Total 1.8 mg/dL (0.2-1.2); Calc. Creatinine Clearance 78 mL/min (70-130); Calcium 8.1 mg/dL (7.8-10.44); Carbon Dioxide 18 mmol/L (23-31); Chloride 106 mmol/L (98-107); Estimated GFR-MDRD 63; Globulin 1.7 g/dL (2.4-3.5); Glucose 114 mg/dL (80-115); Potassium 4.7 mmol/L (3.5-5.1); Protein, Total 4.5 g/dL (5.8-8.1); Sodium 129 mmol/L (136-145)
[2018-01-13 05:37] LABS: Anisocytosis SLIGHT = 6-15 cells (100X) (0-5/hpf); Band 1 % (5-11); Eosinophils 1 % (0-10); Hemoglobin 8.4 g/dL (14.0-18.0); Lymphocytes 21 % (21-51); MDiff Complete? YES; Mean Corpuscular Hemoglobin 33.7 pg (27.0-31.0); Mean Corpuscular Volume 96.5 fl (80.0-94.0); Mean Platelet Volume 6.3 fL (7.4-10.4); Monocytes 4 % (0-10); Neutrophil 73 % (42-75); PLT Morphology Comment Appears Decreased; Platelet Count 107 thou/uL (130-400); RBC Distribution Width 16.1 % (11.5-14.5); White Blood Cell (WBC) Count 10.4 thou/uL (4.8-10.8)
--- NOTE | 2018-01-13 07:37 | PDOC.FM ---
- Subjective Subjective: Hospital Day #5 CC: Dark red stools Nursing reports patient had 3 large, watery, dark red stools overnight. No other problems. No tachycardia or other change in vital signs overnight per nursing. - Objective MAR Reviewed: Yes Vital Signs & Weight: Vital Signs (12 hours) Temp Pulse Resp BP Pulse Ox 01/13/18 06:35 65 97/49 L 01/13/18 06:00 17 01/13/18 04:00 97.9 F 15 01/13/18 02:00 19 01/13/18 00:00 97.5 F L 15 01/12/18 22:00 14 01/12/18 20:00 98.3 F 65 15 100 Weight Admit Weight 85.82 kg Weight 95.8 kg Most Recent Monitor Data Heart Rate from ECG 77 NIBP 97/49 NIBP BP-Mean 73 Respiration from ECG 16 SpO2 100 I&O: 01/12/18 01/13/18 01/14/18 06:59 06:59 06:59 Intake Total 4515.5 3294 Output Total 488 830 Balance 4027.5 2464 Result Diagrams: 01/13/18 03:50 01/13/18 03:50 <Vito Bailey - Last Filed: 01/13/18 07:32> - Objective Vital Signs & Weight: Vital Signs (12 hours) Temp Pulse Resp BP BP 01/13/18 08:32 96 F L 18 92/47 L 01/13/18 08:00 96 F L 14 01/13/18 07:00 96 F L 01/13/18 06:35 65 97/49 L 01/13/18 06:00 17 01/13/18 04:00 97.9 F 15 01/13/18 02:00 19 01/13/18 00:00 97.5 F L 15 01/12/18 22:00 14 Weight Admit Weight 95.8 kg Weight 95.8 kg Most Recent Monitor Data Heart Rate from ECG 72 NIBP 113/54 NIBP BP-Mean 99 Respiration from ECG 18 SpO2 100 I&O: 01/12/18 01/13/18 01/14/18 06:59 06:59 06:59 Intake Total 4515.5 3294 130 Output Total 488 830 125 Balance 4027.5 2464 5 Result Diagrams: 01/13/18 08:30 01/13/18 03:50 <Kathi Olivarez - Last Filed: 01/13/18 09:43> Phys Exam - Physical Examination Sedated Intubated Neck: no nodes, no JVD Coarse breath sounds bilaterally Cardiovascular: RRR, no significant murmur, no rub Gastrointestinal: soft, positive bowel sounds Distended Musculoskeletal: no edema, pulses present Lymphatic: no nodes Skin: no rash, normal turgor, cap refill <2 seconds <Vito Bailey - Last Filed: 01/13/18 07:32> Dx/Plan (1) GI bleed Code(s): K92.2 - GASTROINTESTINAL HEMORRHAGE, UNSPECIFIED Status: Acute QualifierTitle: GI bleed type/associated pathology: duodenal ulcer Qualified Code(s): K26.4 - Chronic or unspecified duodenal ulcer with hemorrhage Plan: Hospital Day #5 - Continue PPI and octreotide. - 3 dark red stools overnight. Now stopped per nursing - Hgb dropped from 10.0 to 8.4. However, no tachycardia or hypotension. Will continue to monitor vitals closely for evidence of continued blood loss. - Recheck CBC later this morning and transfuse if further decrease in Hgb - Consider transfusing platelets if platelets continue to drop - Consider FFP if INR increased (2) Blood loss anemia Code(s): D50.0 - IRON DEFICIENCY ANEMIA SECONDARY TO BLOOD LOSS (CHRONIC) Status: Acute Plan: 2/2 #1. Decrease in hemoglobin overnight. Plan as listed in #1 (3) Hemorrhagic shock Code(s): R57.8 - OTHER SHOCK Status: Resolved Plan: 2/2 #1. Now resolved (4) Cirrhosis Code(s): K74.60 - UNSPECIFIED CIRRHOSIS OF LIVER Status: Chronic Plan: 2/2 steatohepatitis. Continue Protonix and octreotide. GI consulted - appreciate their recs. Will recheck coags later today and give FFP if INR further increased (5) Thrombocytopenia Code(s): D69.6 - THROMBOCYTOPENIA, UNSPECIFIED Status: Acute Plan: Recheck at noon. Transfuse platelets if continue to decrease (6) Hyponatremia Code(s): E87.1 - HYPO-OSMOLALITY AND HYPONATREMIA Status: Acute Plan: Improved to 129. (7) Steatohepatitis Code(s): K75.81 - NONALCOHOLIC STEATOHEPATITIS (SINGH) Status: Chronic (8) Hypotension Status: Acute Plan: 2/2 cirrhosis and GI bleed. Improved today <Vito Bailey - Last Filed: 01/13/18 07:32> Attending Addendum - Attending Addendum Date/Time: 01/13/1842 I personally evaluated the patient and discussed the management with Dr. Bailey. I agree with the History, Examination, Assessment and Plan documented above with any addition or exceptions noted below. The patient had multiple bloody bowel movements overnight. Hg has dropped 2 points but vitals are otherwise stable. Continue to trend h/h. May need transfusion. <Kathi Olivarez - Last Filed: 01/13/18 09:43>
[2018-01-13] MEDS: Dextrose 5 % And 0.9 % NaCl 1,000 ML IV SCH (08:12)
[2018-01-13] MEDS: Albumin 25% 25 GM/100 ML BOT IVPB SCH ×3 (08:46→23:39)
[2018-01-13 09:12] LABS: Band 1 % (5-11); Eosinophils 3 % (0-10); Hemoglobin 8.6 g/dL (14.0-18.0); Lymphocytes 19 % (21-51); MDiff Complete? YES; Mean Corpuscular HGB CONC 35.5 g/dL (32.0-36.0); Mean Corpuscular Hemoglobin 34.5 pg (27.0-31.0); Mean Corpuscular Volume 97.1 fl (80.0-94.0); Mean Platelet Volume 5.8 fL (7.4-10.4); Monocytes 2 % (0-10); Neutrophil 75 % (42-75); Platelet Count 106 thou/uL (130-400); RBC Distribution Width 16.6 % (11.5-14.5); Red Blood Cell (RBC) Count 2.49 mill/uL (4.70-6.10); White Blood Cell (WBC) Count 10.3 thou/uL (4.8-10.8)
[2018-01-13] MEDS: Octreotide Acetate 1,250 MCG in Sodium Chloride 0.9% 250 ML 250 ML IVPB SCH (09:33)
[2018-01-13] MEDS ORDERED: DC Sedation Protocol FS ONE (10:33)
[2018-01-13 13:22] LABS: PTT 45.4 SEC (22.9-36.1); Prothrombin Time 23.4 SEC (12.0-14.7)
[2018-01-13 13:23] LABS: Mean Corpuscular HGB CONC 35.8 g/dL (32.0-36.0); Mean Corpuscular Hemoglobin 33.9 pg (27.0-31.0); Mean Corpuscular Volume 94.8 fl (80.0-94.0); Mean Platelet Volume 5.8 fL (7.4-10.4); Platelet Count 100 thou/uL (130-400); RBC Distribution Width 16.9 % (11.5-14.5); Red Blood Cell (RBC) Count 2.64 mill/uL (4.70-6.10); White Blood Cell (WBC) Count 9.6 thou/uL (4.8-10.8)
[2018-01-13 13:52] LABS: Anisocytosis SLIGHT = 6-15 cells (100X) (0-5/hpf); Eosinophils 1 % (0-10); Lymphocytes 9 % (21-51); MDiff Complete? YES; Monocytes 2 % (0-10); Neutrophil 86 % (42-75); Nucleated RBC 1 % (0); PLT Morphology Comment Appears Decreased; Polychromasia SLIGHT = 2-3 cells (100X) (0-2/hpf); Reactive Lymphocytes 2 % (0-10)
--- NOTE | 2018-01-13 15:00 | PRG ---
DATE OF SERVICE: 01/13/2018 SUBJECTIVE: This morning, he is sedated, on hazy mood, unresponsive, jaundiced. OBJECTIVE: VITAL SIGNS: Pulse 65, blood pressure 92/47, sats 100%, respiration rate 16. His I's and O's are 45 15 in and 488 out. CHEST: Chest reveals decreased breath sounds, minimal rhonchi. CARDIAC: Normal S1, S2, no gallops. ABDOMEN: Distended, ascites. EXTREMITIES: Trace edema. LABORATORY DATA: White count 10,000, H&H is 8 and 24, platelet count is 107. Sodium 129, BUN and cr eatinine are 40 and 1.17. X-RAY FINDINGS: His x-rays of yesterday did not show any acute infiltrates. IMPRESSION: 1. Respiratory failure. 2. Cirrhosis. 3. Encephalopathy. 4. GI bleed. PLAN: He is on antibiotics, sedation, neb treatments, supportive care. We will hold off sedation and consider weaning when stable. One-half hour critical care time.
[2018-01-13 18:34] LABS: Hemoglobin 9.4 g/dL (14.0-18.0); Mean Corpuscular HGB CONC 35.1 g/dL (32.0-36.0); Mean Corpuscular Hemoglobin 33.3 pg (27.0-31.0); Mean Corpuscular Volume 94.9 fl (80.0-94.0); Mean Platelet Volume 5.7 fL (7.4-10.4); Platelet Count 114 thou/uL (130-400); RBC Distribution Width 17.3 % (11.5-14.5); Red Blood Cell (RBC) Count 2.81 mill/uL (4.70-6.10); White Blood Cell (WBC) Count 10.7 thou/uL (4.8-10.8)
--- NOTE | 2018-01-13 22:06 | PRG ---
DATE OF SERVICE: 01/13/2018 SUBJECTIVE: Mr. Daugherty has been extubated. He is awake. He is feeling well. The nurses report he has had one dark stool, but it seems like old blood. He is off pressors. MEDICATIONS: Albumin 25 IV q.8 hours, lactulose 30 once daily, levofloxacin 500 daily, tube feed oct reotide 50 mcg per hour, Zofran p.r.n., Protonix 8 mg per hour drip. PHYSICAL EXAMINATION: VITAL SIGNS: Temperature is 96.2, has been afebrile for the past 24 hours, blood pressure 100/59, pu lse 79 to 87, respirations 18, O2 sat 99%. In's and out's 3294 and 830. GENERAL: He is awake. He seems alert and family at the bedside. LUNGS: Clear, decreased breath sounds in the bases. HEART: Regular rate and rhythm. ABDOMEN: Protuberant but soft. There is shifting dullness and fluid wave. Ta catheter is in dee ce. Output has increased from 488 for 24 hours yesterday morning at 830 for 24 hours in this morning . LABORATORY STUDIES: White count 10.3, hemoglobin 8.6, today 8.4 at 0350 hours, platelet count 106 an d is 10 yesterday. INR 2. Sodium 129, potassium 4.7, BUN and creatinine are 40 and 1.17. Bilirubin is 1.8. AST and ALT of 74 and 52, protein is 4.5, albumin is 2.8. Ammonia was 57. ASSESSMENT: 1. Status post intubation. 2. Gastrointestinal bleed, black stools per nursing staff, stable hemoglobin. No overt signs of sunny oing bleeding at this time, slight downtick in hemoglobin per hydration status. We will monitor in t ICU. 3. Hemorrhagic shock, resolved. He is off pressors, acceptable blood pressure for cirrhotic. 4. Cirrhosis. 5. Thrombocytopenia related stressors. 6. Coagulopathy, stable. 7. Mild encephalopathy. 8. Hyponatremia, improved. RECOMMENDATIONS: Continue monitoring in ICU today. Continue octreotide drip, continue IV Protonix. His hemoglobin went from 9.9 yesterday afternoon to 8 this morning. We will monitor. No clear sign s of bleeding at this time. Findings discussed with the nurses and the patient's family.
[2018-01-14] MEDS ORDERED: oxyCODONE 5 MG TAB PER TUBE SCH (03:15)
[2018-01-14 04:59] LABS: INR-International Normal Ratio 1.9; PTT 42.2 SEC (22.9-36.1); Prothrombin Time 22.5 SEC (12.0-14.7)
[2018-01-14 05:00] LABS: #Eosinphils 0.1 thou/uL (0.0-0.7); #Lymphocytes 1.4 thou/uL (1.20-3.40); #Monocytes 0.8 thou/uL (0.11-0.59); #Neutrophils 8.9 thou/uL (1.40-6.50); %Eosinophils 0.6 % (0.0-10.0); %Lymphocytes 12.5 % (21.0-51.0); %Monocytes 7.3 % (0.0-10.0); %Neutrophils 79.5 % (42.0-75.0); Hemoglobin 9.1 g/dL (14.0-18.0); Mean Corpuscular HGB CONC 34.3 g/dL (32.0-36.0); Mean Corpuscular Hemoglobin 32.9 pg (27.0-31.0); Mean Corpuscular Volume 95.9 fl (80.0-94.0); Mean Platelet Volume 5.8 fL (7.4-10.4); Platelet Count 103 thou/uL (130-400); RBC Distribution Width 18.1 % (11.5-14.5); Red Blood Cell (RBC) Count 2.75 mill/uL (4.70-6.10); White Blood Cell (WBC) Count 11.1 thou/uL (4.8-10.8)
[2018-01-14 05:24] LABS: ALT (SGPT) 51 U/L (8-55); AST (SGOT) 74 U/L (5-34); Albumin 3.2 g/dL (3.4-4.8); Alkaline Phosphatase 141 U/L (40-150); Anion Gap 7 mmol/L (10-20); BUN (Urea Nitrogen) 34 mg/dL (8.4-25.7); Bilirubin, Total 2.1 mg/dL (0.2-1.2); Calc. Creatinine Clearance 113 mL/min (70-130); Calcium 8.4 mg/dL (7.8-10.44); Carbon Dioxide 21 mmol/L (23-31); Chloride 109 mmol/L (98-107); Estimated GFR-MDRD 84; Globulin 1.8 g/dL (2.4-3.5); Glucose 108 mg/dL (80-115); Potassium 4.1 mmol/L (3.5-5.1); Sodium 133 mmol/L (136-145)
--- NOTE | 2018-01-14 07:31 | PDOC.FM ---
- Subjective Subjective: Hospital Day: 6 CC: Confused Patient extubated yesterday. Nurses report he was a little confused overnight, having conversations that didn't quite make sense, but he did not require physical or chemical restraints. Patient's only complaint this morning is that he would like to talk to a family member. He denies pain and dyspnea. - Objective MAR Reviewed: Yes Vital Signs & Weight: Vital Signs (12 hours) Temp 01/14/18 00:00 98.3 F 01/13/18 20:00 98.2 F Weight Admit Weight 95.8 kg Weight 94.7 kg Most Recent Monitor Data Heart Rate from ECG 93 NIBP 106/61 NIBP BP-Mean 81 Respiration from ECG 32 SpO2 95 I&O: 01/13/18 01/14/18 01/15/18 06:59 06:59 06:59 Intake Total 3294 1551 Output Total 830 610 Balance 2464 941 Result Diagrams: 01/14/18 04:19 01/14/18 04:19 <Vito Bailey - Last Filed: 01/14/18 07:27> - Objective Vital Signs & Weight: Vital Signs (12 hours) Temp Pulse Resp Pulse Ox 01/14/18 12:00 98.9 F 01/14/18 09:00 98.2 F 01/14/18 08:00 98.2 F 92 18 95 01/14/18 07:00 98.2 F 01/14/18 04:00 98.1 F Weight Admit Weight 95.8 kg Weight 94.7 kg Most Recent Monitor Data Heart Rate from ECG 97 NIBP 129/58 NIBP BP-Mean 76 Respiration from ECG 22 SpO2 99 I&O: 01/13/18 01/14/18 01/15/18 06:59 06:59 06:59 Intake Total 3294 2344 240 Output Total 830 860 305 Balance 2464 1484 -65 Result Diagrams: 01/14/18 04:19 01/14/18 04:19 <Kathi Olivarez - Last Filed: 01/14/18 15:33> Phys Exam - Physical Examination Constitutional: NAD HEENT: moist MMs, oral pharynx no lesions Neck: no nodes, supple, full ROM Respiratory: no wheezing, no rales, no rhonchi, clear to auscultation bilateral Cardiovascular: RRR, no significant murmur, no rub Gastrointestinal: soft, non-tender, no distention, positive bowel sounds Musculoskeletal: no edema, pulses present Neurological: non-focal, moves all 4 limbs Lymphatic: no nodes Deviation from normal: Alert. Oriented to person and place Skin: no rash, normal turgor, cap refill <2 seconds <Vito Bailey - Last Filed: 01/14/18 07:27> Dx/Plan (1) GI bleed Code(s): K92.2 - GASTROINTESTINAL HEMORRHAGE, UNSPECIFIED Status: Acute QualifierTitle: GI bleed type/associated pathology: duodenal ulcer Qualified Code(s): K26.4 - Chronic or unspecified duodenal ulcer with hemorrhage Plan: Hospital Day #6 - Continue PPI and octreotide. - 3 dark red stools overnight. Now stopped per nursing - Hemoglobin stable over the last 24 hours - Extubated 01/13/18 - GI consulted. Appreciate his recs (2) Delirium Code(s): R41.0 - DISORIENTATION, UNSPECIFIED Status: Acute Plan: Conservative interventions. Encourage natural sunlight and family member at bedside. (3) Blood loss anemia Code(s): D50.0 - IRON DEFICIENCY ANEMIA SECONDARY TO BLOOD LOSS (CHRONIC) Status: Acute Plan: 2/2 #1. Hemoglobin stable. Plan as listed in #1 (4) Hemorrhagic shock Code(s): R57.8 - OTHER SHOCK Status: Resolved Plan: 2/2 #1. Now resolved (5) Cirrhosis Code(s): K74.60 - UNSPECIFIED CIRRHOSIS OF LIVER Status: Chronic Plan: 2/2 steatohepatitis. Continue Protonix and octreotide. GI consulted - appreciate their recs. (6) Thrombocytopenia Code(s): D69.6 - THROMBOCYTOPENIA, UNSPECIFIED Status: Acute Plan: Recheck at noon. Transfuse platelets if continue to decrease (7) Hyponatremia Code(s): E87.1 - HYPO-OSMOLALITY AND HYPONATREMIA Status: Acute Plan: Improved to 133 (8) Steatohepatitis Code(s): K75.81 - NONALCOHOLIC STEATOHEPATITIS (SINGH) Status: Chronic (9) Hypotension Status: Acute Plan: 2/2 cirrhosis and GI bleed. Improved today <Vito Bailey - Last Filed: 01/14/18 07:27> Attending Addendum - Attending Addendum Date/Time: 01/14/18 1532 I personally evaluated the patient and discussed the management with Dr. Bailey. I agree with the History, Examination, Assessment and Plan documented above with any addition or exceptions noted below. Patient is anxious to speak to a family member this morning. H/H is stable. He has had multiple bowel movements which per nursing have not had blood in them. Can likely transition to the floor this afternoon. <Kathi Olivarez - Last Filed: 01/14/18 15:33>
[2018-01-14] MEDS: Albumin 25% 25 GM/100 ML BOT IVPB SCH (09:04)
[2018-01-14] MEDS ORDERED: Octreotide Acetate 1,250 MCG in Sodium Chloride 0.9% 250 ML 250 ML IVPB SCH (10:00)
--- NOTE | 2018-01-14 12:06 | PRG ---
DATE OF SERVICE: 01/14/2018 SUBJECTIVE: Awake, alert, responsive, encephalopathic, though he appears to be in no respiratory dis tress. OBJECTIVE: VITAL SIGNS: Temperature 98, blood pressure 125/58, pulse 105, sats are 96%. GENERAL: Awake, alert, and responsive. CHEST: Decreased breath sounds without any wheezing. CARDIAC: Normal S1 and S2. No gallops. ABDOMEN: Soft. LABORATORY DATA: INR is 1.9. Albumin is 3.2. His white count is 11,000, his platelet count is 103. BUN and creatinine normal. IMPRESSION: 1. Status post respiratory failure. 2. Gastrointestinal bleeding. 3. Cirrhosis. 4. Encephalopathy. PLAN: He can be transferred out of the ICU. Discontinue NG, nutrition, PT, and supportive care.
[2018-01-14] MEDS ORDERED: Ziprasidone 20 MG VIAL IM SCH (14:45)
[2018-01-14] MEDS ORDERED: Sterile Water 10 ML VIAL FS SCH (15:00)
--- NOTE | 2018-01-14 15:34 | PRG ---
DATE OF SERVICE: 01/14/2018 SUBJECTIVE: Mr. Daugherty has done well overnight. From a GI standpoint, he has had no bleeding. He has had no fever. The nurses and family notes that he is a little bit confused last night and can be mildly paranoid. Today, he seemed very focused on the fact that although his family cannot be in hi s room one time. Family is aware that he was having encephalopathy or brain swelling. He received n o sedatives last night. OBJECTIVE: VITAL SIGNS: Temperature is 98, pulse 92, blood pressure 129/58. GENERAL: He is sitting up in bed. He is oriented to person, place and time. He recognizes all of h is family members. He has become very focused on just a couple of issues and seems mildly paranoid. The nurses note, he did not sleep last night. LUNGS: Clear. HEART: Regular rate and rhythm. ABDOMEN: Protuberant with shifting dullness. Fluid is not dense. EXTREMITIES: Reveal trace edema. LABORATORY STUDIES: White count 11.1, hemoglobin 9.1, platelet count 103,000. INR 1.9. Sodium 133, potassium 4.1, BUN 34, creatinine 0.91, glucose 108, bilirubin 2.1. AST 74, ALT 51, albumin 2.5. ASSESSMENT: 1. Gastrointestinal hemorrhage secondary to large duodenal ulcer, resolved. 2. He has been extubated now for over 24 hours and is doing well with that. 3. Cirrhosis, decompensated with ascites. 4. I think he probably has some ICU psychosis for . His ammonia yesterday was normal at 5 7, today is 37. He does not seem to have hepatic encephalopathy. RECOMMENDATIONS: 1. Agree with transfer to floor. Family is going to be with him and this was discussed with the talha se. He is having some issues and that he may need some Geodon if he gets worse. If he do es, I have asked her to call me and we will order that. 2. No signs of hepatic encephalopathy. Clinically, his neurologic behavior is not consistent with t hat and his ammonia was 37. 3. Ascites and trace edema. We will start him on low dose diuretics. 4. We will stop his albumin. 5. With regard to gastrointestinal bleed, we will decrease his octreotide dose in half for 24 hours and then stop it. We will convert his Protonix drip to IV q.12 hours. 6. We will start a full liquid diet.
[2018-01-14 18:09] LABS: #Lymphocytes 1.6 thou/uL (1.20-3.40); #Monocytes 0.7 thou/uL (0.11-0.59); #Neutrophils 8.9 thou/uL (1.40-6.50); %Basophils 0.2 % (0.0-1.0); %Eosinophils 0.2 % (0.0-10.0); %Lymphocytes 14.3 % (21.0-51.0); %Monocytes 6.3 % (0.0-10.0); %Neutrophils 78.9 % (42.0-75.0); Hemoglobin 9.1 g/dL (14.0-18.0); Mean Corpuscular HGB CONC 34.7 g/dL (32.0-36.0); Mean Corpuscular Hemoglobin 33.5 pg (27.0-31.0); Mean Corpuscular Volume 96.6 fl (80.0-94.0); Mean Platelet Volume 5.7 fL (7.4-10.4); Platelet Count 94 thou/uL (130-400); White Blood Cell (WBC) Count 11.3 thou/uL (4.8-10.8)
[2018-01-14] MEDS: Pantoprazole 40 MG VIAL IVP SCH (21:10)
[2018-01-15] MEDS ORDERED: Melatonin 3 MG TAB PO PRN (00:02)
[2018-01-15 04:34] LABS: INR-International Normal Ratio 1.9; PTT 44.3 SEC (22.9-36.1); Prothrombin Time 22.2 SEC (12.0-14.7)
[2018-01-15 04:44] LABS: #Lymphocytes 1.5 thou/uL (1.20-3.40); #Monocytes 0.7 thou/uL (0.11-0.59); #Neutrophils 8.7 thou/uL (1.40-6.50); %Basophils 0.2 % (0.0-1.0); %Eosinophils 0.4 % (0.0-10.0); %Lymphocytes 13.6 % (21.0-51.0); %Monocytes 6.3 % (0.0-10.0); %Neutrophils 79.6 % (42.0-75.0); Mean Corpuscular HGB CONC 34.5 g/dL (32.0-36.0); Mean Corpuscular Hemoglobin 33.9 pg (27.0-31.0); Mean Corpuscular Volume 98.3 fl (80.0-94.0); Mean Platelet Volume 5.6 fL (7.4-10.4); Platelet Count 97 thou/uL (130-400); RBC Distribution Width 18.3 % (11.5-14.5); Red Blood Cell (RBC) Count 2.66 mill/uL (4.70-6.10)
[2018-01-15 04:56] LABS: ALT (SGPT) 45 U/L (8-55); AST (SGOT) 62 U/L (5-34); Albumin 3.1 g/dL (3.4-4.8); Alkaline Phosphatase 128 U/L (40-150); Anion Gap 9 mmol/L (10-20); BUN (Urea Nitrogen) 31 mg/dL (8.4-25.7); Bilirubin, Total 3.9 mg/dL (0.2-1.2); Calc. Creatinine Clearance 115 mL/min (70-130); Calcium 8.2 mg/dL (7.8-10.44); Carbon Dioxide 20 mmol/L (23-31); Chloride 111 mmol/L (98-107); Estimated GFR-MDRD 87; Glucose 97 mg/dL (80-115); Potassium 4.4 mmol/L (3.5-5.1); Protein, Total 5.1 g/dL (5.8-8.1); Sodium 136 mmol/L (136-145)
[2018-01-15] MEDS: Pantoprazole 40 MG VIAL IVP SCH ×2 (09:03→20:34)
--- NOTE | 2018-01-15 09:05 | PDOC.FM ---
- Subjective Subjective: Hospital day 7 Patient been extubated 2 days now. He continues to be confused per family, speaking in complete sentences but his word choice does not make sense. However , he is able to understand and follow command. Family says he does not have pain or bleeding as far as they know. - Objective MAR Reviewed: Yes Vital Signs & Weight: Vital Signs (12 hours) Temp Pulse Resp BP BP Pulse Ox 01/15/18 08:00 98.1 F 93 16 112/61 92 L 01/15/18 04:00 98.2 F 104 H 20 105/58 L 92 L 01/15/18 00:25 98.2 F 01/15/18 00:00 98.6 F 97 18 107/64 92 L Weight Admit Weight 95.8 kg Weight 92.533 kg Most Recent Monitor Data Heart Rate from ECG 97 NIBP 129/58 NIBP BP-Mean 76 Respiration from ECG 22 SpO2 99 I&O: 01/14/18 01/15/18 01/16/18 06:59 06:59 06:59 Intake Total 2344 240 Output Total 860 305 Balance 1484 -65 Result Diagrams: 01/15/18 04:08 01/15/18 04:08 <Emanuel Wood - Last Filed: 01/15/18 09:03> - Objective Vital Signs & Weight: Vital Signs (12 hours) Temp Pulse Resp BP BP Pulse Ox 01/15/18 08:00 98.1 F 93 16 112/61 92 L 01/15/18 04:00 98.2 F 104 H 20 105/58 L 92 L 01/15/18 00:25 98.2 F 01/15/18 00:00 98.6 F 97 18 107/64 92 L Weight Admit Weight 95.8 kg Weight 92.533 kg Most Recent Monitor Data Heart Rate from ECG 97 NIBP 129/58 NIBP BP-Mean 76 Respiration from ECG 22 SpO2 99 I&O: 01/14/18 01/15/18 01/16/18 06:59 06:59 06:59 Intake Total 2344 240 Output Total 860 305 Balance 1484 -65 Result Diagrams: 01/15/18 04:08 01/15/18 04:08 <Otilio Davis - Last Filed: 01/15/18 10:28> Phys Exam - Physical Examination Constitutional: NAD HEENT: moist MMs Neck: supple Respiratory: no wheezing, no rales Cardiovascular: RRR, no significant murmur Gastrointestinal: soft, positive bowel sounds Distended 1+ edema in LE Neurological: moves all 4 limbs Lymphatic: no nodes Psychiatric: A&O x 3 Deviation from normal: Patient AO x3, follows command, no focal deficit, CN2- XII grossly intact Deviation from normal: Scatterd bruising <NinaEmanuel M - Last Filed: 01/15/18 09:03> Dx/Plan (1) GI bleed Code(s): K92.2 - GASTROINTESTINAL HEMORRHAGE, UNSPECIFIED Status: Acute QualifierTitle: GI bleed type/associated pathology: duodenal ulcer Qualified Code(s): K26.4 - Chronic or unspecified duodenal ulcer with hemorrhage Plan: Hospital day 6 GI plans to stop octreotide but continue PPI No bloody stool per nursing Hgb stable for past 48 hour Extubated 01/13 GI is on board for this case. (2) Delirium Code(s): R41.0 - DISORIENTATION, UNSPECIFIED Status: Acute Plan: New issue that has started after extubation. May be hospital based delerium s/p extubation. Has BM and urination, so unlikely retention. No systemic sign of infection, improving WBC so less likely infection. Possible pain, but no recent procedure or trauma since his intubation/EGD procedure. Patient apparently did not sleep at all last night. Plan to consider 1x geodon, continue orientation of patient, enforce day/night cycle, consider melatonin. (3) Cirrhosis Code(s): K74.60 - UNSPECIFIED CIRRHOSIS OF LIVER Status: Chronic Plan: Chronic issue likely related to steatohepatitis. Patient has GI bleed, so on levaquin prophylaxis. Continue protonix (4) Hyponatremia Code(s): E87.1 - HYPO-OSMOLALITY AND HYPONATREMIA Status: Acute Plan: Has improved since admission and been stable prior to his confusion. Unlikely to be the cause now. (5) Hemorrhagic shock Code(s): R57.8 - OTHER SHOCK Status: Resolved Plan: Resolved (6) Steatohepatitis Code(s): K75.81 - NONALCOHOLIC STEATOHEPATITIS (SINGH) Status: Chronic Plan: Known chronic issue that is likely cause of patient's cirrhosis. <NinaMonicaEmanuel M - Last Filed: 01/15/18 09:03> Attending Addendum - Attending Addendum Date/Time: 01/15/18 1026 I personally evaluated the patient and discussed the management with Dr. Wood and team. I agree with and repeated the History, Examination, Assessment and Plan documented above with any addition or exceptions noted below. Pt pleasantly confused this AM. Keeps introducing me to his family. He has no complaints. Denies f/c/n/v/abd pain/melena/hematochezia/cp/sob. Delirium vs HE. Will sent ammonia and titrate lactulose. Nonpharm measures as able. Avoid antipsychotics unless danger to self or others. Appreciate p/cc and GI. <Otilio Davis - Last Filed: 01/15/18 10:28>
--- NOTE | 2018-01-15 12:29 | PRG ---
DATE OF SERVICE: 01/15/2018 SERVICE: Pulmonary Medicine. INTERVAL HISTORY: The patient is doing fine from a respiratory standpoint. He is on 2 liters nasal cannula. He denies any chest pain, nausea, vomiting, fevers or chills. He is encephalopathic today. Additionally, he has got some hallucinations. Otherwise, there has been no interval change to his condition. PHYSICAL EXAMINATION: VITAL SIGNS: Afebrile, pulse 93, blood pressure 112/61, respirations 16, saturation 92% on 2 liters nasal cannula. GENERAL: The patient is awake and alert, in no apparent distress. LUNGS: Excellent air entry. There is no prolonged expiratory phase, wheezing, rhonchi or crackles. HEART: Normal rate and regular. ABDOMEN: Soft. Distended with ascites. Bowel sounds are positive. There is no rebound or guarding . : No Ta. NEUROLOGIC: Grossly nonfocal. MUSCULOSKELETAL: No cyanosis or clubbing. There is diffuse 2-3+ pitting edema throughout. LABORATORY DATA: WBC 11.0, hemoglobin 9.0, platelets 97,000. INR 1.9 and stable. PH 7.20, pCO2 51, pO2 76. Creatinine 0.88 and down trending, chloride 111, bicarbonate 20. Liver function studies ar e trending in favorable direction. Ammonia level 52. Urinalysis is unremarkable. ASSESSMENT: 1. Acute hypoxic respiratory failure, improving. 2. Acute blood loss anemia. 3. Hemorrhagic shock, resolved. 4. Upper gastrointestinal bleed secondary to duodenal ulcer. 5. Cirrhosis with coagulopathy. 6. Metabolic encephalopathy. 7. Delirium, suspected. PLAN: The IJ will need to be removed as soon as possible. The patient's blood pressures look like t hey can tolerate him being back on his Lasix and spironolactone. At this point, the patient has no f urther requirements for inpatient Pulmonary Critical Care opinion. As such, we will sign off. Pleas e call with additional questions or concerns.
[2018-01-15] MEDS ORDERED: Furosemide 40 MG TAB PO SCH ×2 (14:00→21:00)
[2018-01-15] MEDS ORDERED: Ziprasidone 20 MG CAP PO PRN (14:16)
[2018-01-15] MEDS: Dextrose 5 % And 0.9 % NaCl 1,000 ML IV SCH (14:53)
--- NOTE | 2018-01-15 19:14 | PRG ---
DATE OF SERVICE: 01/15/2018 SUBJECTIVE: Mr. Daugherty still seems to be a little bit off the neurologic standpoint from his family . He is moving all extremities fine. He did not sleep again last night after moving out of the ICU. He did seem to calm down with one dose of Geodon. This was short-lived for a couple of hours. He knows where he is. He denies pain. He has had no fever. OBJECTIVE: GENERAL: He is oriented to person, place and time. He seems to perseverate on certain things and re peat comments over and over. VITAL SIGNS: Temperature is 98.1, pulse 93, blood pressure 112/61. LUNGS: Clear. CARDIAC: Heart is regular without clicks or murmurs. ABDOMEN: Protuberant, fluid in the abdomen. EXTREMITIES: He has got trace edema in his legs. He has no asterixis. LABORATORY DATA: White count is 11, hemoglobin 9, platelet count 97,000. INR is 1.9. Sodium 136, p otassium 4.4, BUN 31, creatinine 0.8, bilirubin is 3.9, AST 69, ALT 45. Ammonia is 52. Protein is 5 .1. ASSESSMENT: 1. Gastrointestinal hemorrhage from large duodenal ulcer, now resolved, last 4 days. 2. Cirrhosis, Child C. 3. He has had some mental status changes, compatible typically with hepatic encephalopathy, although he does have a mildly elevated ammonia. He is getting lactulose 3 times a day. He always has more of a paranoid behavior, which is not typically seen with hepatic encephalopathy. I did give him a do se of Geodon yesterday, which he rested for a while and received lactulose once a day. PLAN: We will resume his oral Lasix and Aldactone. He is still not eating. So, we are going to go ahead and put him back on IV fluids at 75 mL an hour. We are going to turn off his octreotide drip. We are going to stop his levofloxacin. We would increase his lactulose to t.i.d. and add in some Xi faxan. We will get a Neurology consult as well.
[2018-01-15] MEDS: Rifaximin 550 MG TAB PO SCH ×2 (20:34→20:46)
[2018-01-16] MEDS ORDERED: Furosemide 40 MG/4 ML VIAL SLOW IVP SCH (03:00)
[2018-01-16] MEDS: Dextrose 5 % And 0.9 % NaCl 1,000 ML IV SCH ×2 (03:04→18:37)
--- NOTE | 2018-01-16 03:36 | CON ---
DATE OF CONSULTATION: 01/15/2018 REFERRING PROVIDER: Alec Mathis M.D. REASON FOR CONSULTATION: Altered mental status. HISTORY OF PRESENT ILLNESS: Mr. Daugherty is a pleasant 62-year-old male who has been consul rob for evaluation of altered mental status. History is obtained from patient's daughter, who was pr esent at bedside. Daughter reports that the patient had developed blood in his stools approximately 10 days ago. He had seen Dr. Mathis as outpatient in the clinic at that time, he was directly being admitted to the hospital. after being admitted to the hospital, he was initially managed medically; however, he had recurrence of GI bleed and thus had to be intubated. He undergone surgery to correct duodenal ulcer after coming out from intubation. They have noticed increasing episodes of confusion . She states that he has been having increasing episodes of paranoia. He is also having auditory an d visual hallucinations. He sometimes tends to get confused about his family members, although he is able to state their names, sometimes he calls his daughter as [id number]. They have not notice d any signs of any weakness in upper or lower extremities. He has not complained of any headache or vision changes. PAST MEDICAL HISTORY: Significant for hypertension, coronary artery disease, hyperlipidemia, liver c irrhosis and recent GI bleed. PAST SURGICAL HISTORY: Significant for cardiac stenting, hernia repair, liver biopsy and recent duod enal ulcer repair. FAMILY HISTORY: Noncontributory. SOCIAL HISTORY: History of heavy alcohol use in the past. He does not smoke, drink or use illicit d rugs. CURRENT MEDICATIONS: Please review MAR. ALLERGIES: Include PENICILLIN. REVIEW OF SYSTEMS: As mentioned, which was negative. PHYSICAL EXAMINATION: VITAL SIGNS: Blood pressure of 112/61, pulse of 93, temperature of 98.1, respirations of 16, O2 sats of 92% on room air. GENERAL: Well-developed, well-nourished male in no apparent distress. RESPIRATORY: Clear to auscultation bilaterally. CARDIOVASCULAR: Regular rate and rhythm. NEUROLOGIC: Mental status: The patient is awake, alert, oriented to person, place and time. He is able to state current year, and current month. He is able to state the current president's name. He is able to state his age. He was able to state his daughter and sons name. Speech and language: F luent speech. Cranial nerves: Pupils are 3 mm and reactive. Visual mancini are full to threat. Ext raocular muscles are intact. No nystagmus is noted. Face is symmetric. Tongue and uvula midline. Motor exam showed normal tone and bulk with a 5/5 strength in both upper and lower extremities. Sens ory is intact and symmetric. Deep tendon reflexes 1+ reflexes in both upper and lower extremities. Babinski: Plantar responses flexion bilaterally. Coordination, gait and Romberg could not be tested . LABORATORY DATA: Reviewed, which included CBC and CMP, which is significant for WBC of 11.0, hemoglo bin 9.0, hematocrit is 26.2, platelet count of 97, BUN of 31, AST of 62, otherwise unremarkable. IMPRESSION: 1. Altered mental status, likely toxic metabolic encephalopathy. 2. Recent gastrointestinal bleed. 3. Liver cirrhosis. Mr. Daugherty is a pleasant 62-year-old male with recent episode of gastrointestinal bleed re quiring a duodenal ulcer repair has noted increasing episodes of confusion and agitation. This is li olga indicative of toxic metabolic encephalopathy. At this time, I will recommend continuing current medical management. I would recommend obtaining MRI brain without contrast when patient is medicall y stable and able to lay still for the duration of the MRI. Continue supportive care. Thank you for consultation.
[2018-01-16 04:52] LABS: INR-International Normal Ratio 1.9; PTT 40.8 SEC (22.9-36.1); Prothrombin Time 21.9 SEC (12.0-14.7)
[2018-01-16 05:16] LABS: ALT (SGPT) 42 U/L (8-55); AST (SGOT) 57 U/L (5-34); Albumin 3.2 g/dL (3.4-4.8); Alkaline Phosphatase 119 U/L (40-150); Anion Gap 10 mmol/L (10-20); BUN (Urea Nitrogen) 27 mg/dL (8.4-25.7); Calc. Creatinine Clearance 121 mL/min (70-130); Calcium 8.3 mg/dL (7.8-10.44); Carbon Dioxide 21 mmol/L (23-31); Chloride 113 mmol/L (98-107); Estimated GFR-MDRD Greater than 90; Globulin 2.2 g/dL (2.4-3.5); Glucose 136 mg/dL (80-115); Magnesium 1.9 mg/dL (1.6-2.6); Phosphorus 3.2 mg/dL (2.3-4.7); Protein, Total 5.4 g/dL (5.8-8.1); Sodium 140 mmol/L (136-145)
[2018-01-16 05:45] LABS: #Basophils 0.1 thou/uL (0.0-0.2); #Eosinphils 0.1 thou/uL (0.0-0.7); #Lymphocytes 1.4 thou/uL (1.20-3.40); #Neutrophils 10.5 thou/uL (1.40-6.50); %Basophils 0.5 % (0.0-1.0); %Eosinophils 0.6 % (0.0-10.0); %Lymphocytes 10.9 % (21.0-51.0); %Monocytes 7.9 % (0.0-10.0); %Neutrophils 80.1 % (42.0-75.0); Hemoglobin 9.4 g/dL (14.0-18.0); Mean Corpuscular HGB CONC 33.3 g/dL (32.0-36.0); Mean Corpuscular Hemoglobin 33.4 pg (27.0-31.0); Mean Platelet Volume 5.7 fL (7.4-10.4); Platelet Count 105 thou/uL (130-400); RBC Distribution Width 18.2 % (11.5-14.5)
[2018-01-16] MEDS: Pantoprazole 40 MG VIAL IVP SCH (08:20)
[2018-01-16] MEDS: Rifaximin 550 MG TAB PO SCH ×2 (08:20→21:29)
--- NOTE | 2018-01-16 08:56 | PDOC.FM ---
- Subjective Subjective: Patient is found sitting in bed. He states he is doing well and was amused by how he was acting before. He and his family report he is back to base line mentation. He denies fever, chils, abd pain, chest pain, or bloody BM. - Objective MAR Reviewed: Yes Vital Signs & Weight: Vital Signs (12 hours) Temp Pulse Resp BP BP Pulse Ox 01/16/18 08:00 98.2 F 92 24 H 110/66 94 L 01/16/18 04:00 98.4 F 98 20 128/71 95 01/16/18 01:23 99.4 F 96 22 H 124/69 91 L Weight Admit Weight 85.82 kg Weight 89.403 kg Most Recent Monitor Data Heart Rate from ECG 97 NIBP 129/58 NIBP BP-Mean 76 Respiration from ECG 22 SpO2 99 I&O: 01/15/18 01/16/18 01/17/18 06:59 06:59 06:59 Intake Total 240 1100 Output Total 305 Balance -65 1100 Result Diagrams: 01/16/18 04:40 01/16/18 04:40 <Emanuel Wood M - Last Filed: 01/16/18 08:55> - Objective Vital Signs & Weight: Vital Signs (12 hours) Temp Pulse Resp BP BP Pulse Ox 01/16/18 08:00 98.2 F 92 24 H 110/66 94 L 01/16/18 04:00 98.4 F 98 20 128/71 95 01/16/18 01:23 99.4 F 96 22 H 124/69 91 L Weight Admit Weight 85.82 kg Weight 89.403 kg Most Recent Monitor Data Heart Rate from ECG 97 NIBP 129/58 NIBP BP-Mean 76 Respiration from ECG 22 SpO2 99 I&O: 01/15/18 01/16/18 01/17/18 06:59 06:59 06:59 Intake Total 240 1100 Output Total 305 Balance -65 1100 Result Diagrams: 01/16/18 04:40 01/16/18 04:40 <Otilio Davis - Last Filed: 01/16/18 10:41> Phys Exam - Physical Examination Constitutional: NAD HEENT: moist MMs Neck: supple IJ in, oozing blood Respiratory: no wheezing Mild rhonchi Cardiovascular: RRR, no significant murmur, gallop Gastrointestinal: soft, non-tender, positive bowel sounds 1+ edema in gregory Neurological: non-focal, moves all 4 limbs Lymphatic: no nodes Psychiatric: A&O x 3 Deviation from normal: Same old bruising from previously <NinaEmanuel Suzanne - Last Filed: 01/16/18 08:55> Dx/Plan (1) GI bleed Code(s): K92.2 - GASTROINTESTINAL HEMORRHAGE, UNSPECIFIED Status: Acute QualifierTitle: GI bleed type/associated pathology: duodenal ulcer Qualified Code(s): K26.4 - Chronic or unspecified duodenal ulcer with hemorrhage Plan: Hospital day 7 Continue PPI No bloody stool per nursing Hgb stable post transfusion Extubated 01/13 GI is on board for this case, appreciate recs. (2) Delirium Code(s): R41.0 - DISORIENTATION, UNSPECIFIED Status: Acute Plan: New issue that has resolved. Ammonia yesterday came back high normal. Rifaxime lactulose was increased. Plan to continue with current management. (3) Cirrhosis Code(s): K74.60 - UNSPECIFIED CIRRHOSIS OF LIVER Status: Chronic Plan: Chronic issue likely related to steatohepatitis. Pa Continue protonix (4) Hyponatremia Code(s): E87.1 - HYPO-OSMOLALITY AND HYPONATREMIA Status: Acute Plan: Has improved since admission and been stable prior to his confusion. Unlikely to be the cause now. (5) Hemorrhagic shock Code(s): R57.8 - OTHER SHOCK Status: Resolved Plan: Resolved (6) Steatohepatitis Code(s): K75.81 - NONALCOHOLIC STEATOHEPATITIS (SINGH) Status: Chronic Plan: Known chronic issue that is likely cause of patient's cirrhosis. <NinaEmanuel Suzanne - Last Filed: 01/16/18 08:55> Attending Addendum - Attending Addendum Date/Time: 01/16/18 1040 I personally evaluated the patient and discussed the management with Dr. Wood and team. I agree with and repeated the History, Examination, Assessment and Plan documented above with any addition or exceptions noted below. Doing well this AM, very conversant, remembers little of his hospitalization it seems. No neurologic deficits. Hepatic encephalopathy - improving, continue current tx. I would hold off on MRI as low suspicion for CVA, mass, bleed, or other anatomy intracranial pathology GI bleed - stable, continue to monitor Cirrhosis - would consider restarting diuretics today Will d/w GI <Otilio Davis - Last Filed: 01/16/18 10:41>
[2018-01-16] MEDS ORDERED: Non-Formulary Item 1 EACH (Spironolactone [Spironolactone] 50 MG) PO SCH (09:00)
[2018-01-16] MEDS: Spironolactone 25 MG TAB PO SCH (10:10)
--- NOTE | 2018-01-16 22:54 | PRG ---
DATE OF SERVICE: 01/16/2018 SUBJECTIVE: Mr. Daugherty feels better. He is a little bit more himself. The family notes he is a li ttle bit shaky. OBJECTIVE: VITAL SIGNS: Temperature is 98.4, pulse 92, blood pressure 110/66. GENERAL: He is cachectic. LUNGS: Clear. HEART: Regular rate and rhythm. ABDOMEN: Protuberant. EXTREMITIES: Trace edema in the legs. NEUROLOGIC: He is more appropriate and oriented. LABORATORY STUDIES: White count 13, hemoglobin 9.4, platelet count 105. INR 1.9. Sodium 140, potas sium 4.0, BUN and creatinine are 27 and 0.82, glucose 136, bilirubin is 4, AST is 57, ALT 42, magnesi um 1.9, phosphorus 3.2, ammonia is 35. ASSESSMENT AND PLAN: 1. Encephalopathy, maybe this was hepatic encephalopathy as his ammonia was in the high, but he did improve when we added the Xifaxan and increased his lactulose to 3 times a day. Alternatively, it ma y just be that he had ICU psychosis managed down in the ICU for 48 hours, he is doing better. 2. Very deconditioned. He is going to need a physical therapist, so I get them up. I am not sure i f he is even going to be able to go home. He has not walked yet. 3. Gastrointestinal bleeding, resolved. Large duodenal ulcer. The pathology on that ulcer showed p eptic duodenitis. No evidence of malignancy or Helicobacter pylori. He has had no bleeding for over 72 hours. We will convert him over to p.o. Protonix and advance his diet. 4. The main problem for him remains cirrhosis. This seems to be cirrhosis or rather fatty liver dis ease. He is having some evaluation in [place], but was to have another biopsy there and MRI there, b ut that is going to be on hold obviously. We will continue 2 g sodium diet. We will start diuretics back on a low level as his diet advances.
[2018-01-17 06:03] LABS: ALT (SGPT) 34 U/L (8-55); AST (SGOT) 48 U/L (5-34); Albumin 2.7 g/dL (3.4-4.8); Alkaline Phosphatase 119 U/L (40-150); Anion Gap 12 mmol/L (10-20); BUN (Urea Nitrogen) 23 mg/dL (8.4-25.7); Bilirubin, Total 3.3 mg/dL (0.2-1.2); Calc. Creatinine Clearance 127 mL/min (70-130); Carbon Dioxide 19 mmol/L (23-31); Chloride 112 mmol/L (98-107); Estimated GFR-MDRD Greater than 90; Globulin 2.4 g/dL (2.4-3.5); Glucose 95 mg/dL (80-115); Potassium 3.9 mmol/L (3.5-5.1); Protein, Total 5.1 g/dL (5.8-8.1); Sodium 139 mmol/L (136-145)
[2018-01-17 06:09] LABS: INR-International Normal Ratio 1.9; Prothrombin Time 22.6 SEC (12.0-14.7)
[2018-01-17 06:10] LABS: PTT 43.7 SEC (22.9-36.1)
[2018-01-17 06:14] LABS: #Eosinphils 0.1 thou/uL (0.0-0.7); #Lymphocytes 1.7 thou/uL (1.20-3.40); #Monocytes 0.8 thou/uL (0.11-0.59); %Eosinophils 0.9 % (0.0-10.0); %Lymphocytes 14.8 % (21.0-51.0); %Monocytes 7.2 % (0.0-10.0); %Neutrophils 77.1 % (42.0-75.0); Hemoglobin 8.8 g/dL (14.0-18.0); Mean Corpuscular HGB CONC 33.4 g/dL (32.0-36.0); Mean Corpuscular Hemoglobin 33.6 pg (27.0-31.0); Mean Platelet Volume 5.6 fL (7.4-10.4); Platelet Count 97 thou/uL (130-400); RBC Distribution Width 17.7 % (11.5-14.5); Red Blood Cell (RBC) Count 2.63 mill/uL (4.70-6.10); White Blood Cell (WBC) Count 11.6 thou/uL (4.8-10.8)
[2018-01-17] MEDS: Spironolactone 25 MG TAB PO SCH (07:53)
[2018-01-17] MEDS: Rifaximin 550 MG TAB PO SCH ×2 (07:54→21:33)
[2018-01-17] MEDS: Furosemide 20 MG TAB PO SCH (07:54)
--- NOTE | 2018-01-17 08:19 | PDOC.FM ---
Addendum entered and electronically signed by Emanuel Wood MD 01/17/18 09:27: EDIT: subjective and objective lost from original document. Subjective: Patient states he is feeling well, but hasn't been out of bed yet. He is tolerating oral intake nad he denies fever, chills, abd pain. Feels more easily SOB. PE: Gen: Alert, oriented, NAD HEENT: Moist mucosal membrane, normocephalic, neck supple CV: RRR with no apparent m/g/r Resp: CTA, but with mild crackles heard Abd: Soft, not tender. Caput medusa seen. Normoactive bowel sound Ext: 1+ pitting edema to mid shins Derm: No new lesions seen. Original Note: - Objective MAR Reviewed: Yes Vital Signs & Weight: Vital Signs (12 hours) Temp Pulse Resp BP Pulse Ox 01/17/18 07:50 97.9 F 86 20 120/73 93 L Weight Admit Weight 85.82 kg Weight 90.401 kg Most Recent Monitor Data Heart Rate from ECG 97 NIBP 129/58 NIBP BP-Mean 76 Respiration from ECG 22 SpO2 99 I&O: 01/16/18 01/17/18 01/18/18 06:59 06:59 06:59 Intake Total 1550 610 Balance 1550 610 Result Diagrams: 01/17/18 05:45 01/17/18 05:45 <Emanuel Wood - Last Filed: 01/17/18 08:17> - Objective Vital Signs & Weight: Vital Signs (12 hours) Temp Pulse Resp BP Pulse Ox 01/17/18 08:00 97.9 F 86 20 93 L 01/17/18 07:50 97.9 F 86 20 120/73 93 L Weight Admit Weight 85.82 kg Weight 90.401 kg Most Recent Monitor Data Heart Rate from ECG 97 NIBP 129/58 NIBP BP-Mean 76 Respiration from ECG 22 SpO2 99 I&O: 01/16/18 01/17/18 01/18/18 06:59 06:59 06:59 Intake Total 1550 610 Balance 1550 610 Result Diagrams: 01/17/18 05:45 01/17/18 05:45 <Otilio Davis - Last Filed: 01/17/18 11:12> Dx/Plan (1) GI bleed Code(s): K92.2 - GASTROINTESTINAL HEMORRHAGE, UNSPECIFIED Status: Acute QualifierTitle: GI bleed type/associated pathology: unspecified gastrointestinal hemorrhage type Qualified Code(s): K92.2 - Gastrointestinal hemorrhage, unspecified Plan: Hospital day 8 Continue PPI No bloody stool per nursing Hgb stable post transfusion GI is on board for this case, appreciate recs. (2) Physical deconditioning Code(s): R53.81 - OTHER MALAISE Status: Acute Plan: Patient is goign to work with PT today as he does feel deconditioned after his acute illness and hasn't been able to get out of bed. May need HH, based on PT eval. (3) Cirrhosis Code(s): K74.60 - UNSPECIFIED CIRRHOSIS OF LIVER Status: Chronic Plan: Chronic issue likely related to steatohepatitis. Patient is exploring options in [place] (4) Hyponatremia Code(s): E87.1 - HYPO-OSMOLALITY AND HYPONATREMIA Status: Acute Plan: Has improved since admission and is stable. (5) Hemorrhagic shock Code(s): R57.8 - OTHER SHOCK Status: Resolved Plan: Resolved. No further bleeding has been noted and hgb stable. (6) Steatohepatitis Code(s): K75.81 - NONALCOHOLIC STEATOHEPATITIS (SINGH) Status: Chronic Plan: Known chronic issue that is likely cause of patient's cirrhosis. (7) Delirium Code(s): R41.0 - DISORIENTATION, UNSPECIFIED Status: Acute Plan: Resolving issue. Plan to continue with current medication. Less likely that this is brain pathology as increase treatmnet for ammonia appear to resolve it versus delirium after move from ICU <Emanuel Wood - Last Filed: 01/17/18 08:17> Attending Addendum - Attending Addendum Date/Time: 01/17/18 9609 I personally evaluated the patient and discussed the management with Dr. Wood. I agree with and repeated the History, Examination, Assessment and Plan documented above with any addition or exceptions noted below. Pt doing well. No cp, some shortness of breath with exertion. No n/v or abd pain. No bleeding No distress, not tachypneic, no increased work of breathing. Sat > 90% on RA. Scant crackles at bilateral bases with expiratory wheezes BS+, NTTP, distended edema BLE Acute GI bleed 2/2 duodenal ulcer -continue PPI Cirrhosis with hepatic encephalopathy (improved) -continue medical management -restart diuretics and monitor I/Os and fluid status Wheezing -suspect underlying COPD in light of cigarette use -counseled cessation -[place] -will need outpatient PFTs -if no improvement will order CXR and consider infectious causes <Otilio Davis - Last Filed: 01/17/18 11:12>
[2018-01-17 14:58] VITALS: BMI 28.5
[2018-01-18 05:19] LABS: #Eosinphils 0.1 thou/uL (0.0-0.7); #Lymphocytes 1.7 thou/uL (1.20-3.40); #Monocytes 0.7 thou/uL (0.11-0.59); #Neutrophils 6.2 thou/uL (1.40-6.50); %Basophils 0.2 % (0.0-1.0); %Eosinophils 1.5 % (0.0-10.0); %Lymphocytes 19.5 % (21.0-51.0); %Monocytes 7.5 % (0.0-10.0); %Neutrophils 71.3 % (42.0-75.0); Hemoglobin 9.2 g/dL (14.0-18.0); Mean Corpuscular HGB CONC 32.6 g/dL (32.0-36.0); Mean Corpuscular Hemoglobin 33.1 pg (27.0-31.0); Mean Platelet Volume 5.6 fL (7.4-10.4); Platelet Count 101 thou/uL (130-400); RBC Distribution Width 17.8 % (11.5-14.5); Red Blood Cell (RBC) Count 2.77 mill/uL (4.70-6.10); White Blood Cell (WBC) Count 8.7 thou/uL (4.8-10.8)
[2018-01-18 05:29] LABS: INR-International Normal Ratio 1.9; PTT 43.2 SEC (22.9-36.1)
[2018-01-18 05:30] LABS: ALT (SGPT) 35 U/L (8-55); AST (SGOT) 50 U/L (5-34); Albumin 2.7 g/dL (3.4-4.8); Alkaline Phosphatase 122 U/L (40-150); Anion Gap 10 mmol/L (10-20); BUN (Urea Nitrogen) 22 mg/dL (8.4-25.7); Bilirubin, Total 3.9 mg/dL (0.2-1.2); Calc. Creatinine Clearance 126 mL/min (70-130); Calcium 8.2 mg/dL (7.8-10.44); Carbon Dioxide 22 mmol/L (23-31); Chloride 110 mmol/L (98-107); Estimated GFR-MDRD Greater than 90; Globulin 2.6 g/dL (2.4-3.5); Glucose 85 mg/dL (80-115); Potassium 3.9 mmol/L (3.5-5.1); Protein, Total 5.3 g/dL (5.8-8.1); Sodium 138 mmol/L (136-145)
[2018-01-18] MEDS: Rifaximin 550 MG TAB PO SCH ×2 (08:43→21:03)
[2018-01-18] MEDS: Spironolactone 25 MG TAB PO SCH (08:44)
[2018-01-18] MEDS: Furosemide 20 MG TAB PO SCH (08:44)
--- NOTE | 2018-01-18 09:32 | PDOC.FM ---
- Subjective Subjective: Patient feels well, says he has been walking, had non bloody BM, and tolerating his food. He denies fever, chills, abd pain, bloody BM. - Objective MAR Reviewed: Yes Vital Signs & Weight: Vital Signs (12 hours) Temp Pulse Resp BP Pulse Ox 01/18/18 07:54 97.8 F 80 20 107/62 92 L 01/18/18 04:33 88 18 92 L Weight Admit Weight 85.82 kg Weight 91.852 kg Most Recent Monitor Data Heart Rate from ECG 97 NIBP 129/58 NIBP BP-Mean 76 Respiration from ECG 22 SpO2 99 I&O: 01/17/18 01/18/18 01/19/18 06:59 06:59 06:59 Intake Total 610 1710 Balance 610 1710 Result Diagrams: 01/18/18 05:00 01/18/18 05:00 <Emanuel Wood M - Last Filed: 01/18/18 09:30> - Objective Vital Signs & Weight: Vital Signs (12 hours) Temp Pulse Resp BP Pulse Ox 01/18/18 07:54 97.8 F 80 20 107/62 92 L 01/18/18 04:33 88 18 92 L Weight Admit Weight 85.82 kg Weight 91.852 kg Most Recent Monitor Data Heart Rate from ECG 97 NIBP 129/58 NIBP BP-Mean 76 Respiration from ECG 22 SpO2 99 I&O: 01/17/18 01/18/18 01/19/18 06:59 06:59 06:59 Intake Total 610 1710 Balance 610 1710 Result Diagrams: 01/18/18 05:00 01/18/18 05:00 <Otilio Davis - Last Filed: 01/18/18 10:51> Phys Exam - Physical Examination Constitutional: NAD HEENT: moist MMs Neck: supple Respiratory: no wheezing, no rales, no rhonchi Cardiovascular: RRR, no significant murmur Gastrointestinal: soft, non-tender, positive bowel sounds 1+ edema, decreased from previously in LE Neurological: non-focal, moves all 4 limbs Lymphatic: no nodes Psychiatric: normal affect Skin: no rash <Emanuel Wood M - Last Filed: 01/18/18 09:30> Dx/Plan (1) GI bleed Code(s): K92.2 - GASTROINTESTINAL HEMORRHAGE, UNSPECIFIED Status: Acute QualifierTitle: GI bleed type/associated pathology: unspecified gastrointestinal hemorrhage type Qualified Code(s): K92.2 - Gastrointestinal hemorrhage, unspecified Plan: Hospital day 9 Continue PPI No bloody stool per nursing Hgb continues to be stable post transfusion GI is on board for this case, appreciate recs. Previous discussion with GI indicate that patient may be safe for discharge in the coming days. (2) Physical deconditioning Code(s): R53.81 - OTHER MALAISE Status: Acute Plan: PT feels patient is regaining strength and does not require PT. They have discharge him from their service. (3) Cirrhosis Code(s): K74.60 - UNSPECIFIED CIRRHOSIS OF LIVER Status: Chronic Plan: Chronic issue likely related to steatohepatitis. Patient is exploring options in [place] (4) Hyponatremia Code(s): E87.1 - HYPO-OSMOLALITY AND HYPONATREMIA Status: Acute Plan: Has improved since admission and is stable. (5) Hemorrhagic shock Code(s): R57.8 - OTHER SHOCK Status: Resolved Plan: Resolved. No further bleeding has been noted and hgb stable. (6) Steatohepatitis Code(s): K75.81 - NONALCOHOLIC STEATOHEPATITIS (SINGH) Status: Chronic Plan: Known chronic issue that is likely cause of patient's cirrhosis. (7) Delirium Code(s): R41.0 - DISORIENTATION, UNSPECIFIED Status: Acute Plan: Resolving issue. Plan to continue with current medication. Less likely that this is brain pathology as increase treatmnet for ammonia appear to resolve it versus delirium after move from ICU <Emanuel Wood - Last Filed: 01/18/18 09:30> Attending Addendum - Attending Addendum Date/Time: 01/18/18 1050 I personally evaluated the patient and discussed the management with Dr. Wood. I agree with and repeated the History, Examination, Assessment and Plan documented above with any addition or exceptions noted below. Looks great this AM. Lungs with minimal crackles and no wheezes, RRR s m/g/r, BS+, NTTP. Hopeful discharge today. <Otilio Davis - Last Filed: 01/18/18 10:51>
--- NOTE | 2018-01-18 11:57 | PRG ---
DATE OF SERVICE: 01/17/2018 SUBJECTIVE: Mr. Daugherty feels well. He is eating. He has been up ambulating some. Family reports physical therapy felt that they could take to home after a couple of days of rehab. He has continued to go home. He is having bowel movements fine. No bleeding or fever. His nurse is concerned centr al line that made for some time and the dressing site looks messy. OBJECTIVE: VITAL SIGNS: Temperature max 99.1 on 11th T-current 97.9, pulse 86, respirations 18. LUNGS: Clear. HEART: Regular rate and rhythm. No clicks or murmurs. ABDOMEN: Protuberant with some ascites. EXTREMITIES: Shifting dullness even in lower extremities 2+, none. LABORATORY STUDIES: White count 11.6, hemoglobin 8.8, platelet count 97,000. Differential normal. INR 1.9. Sodium 139, potassium 3.9, BUN and creatinine are 23 and 0.6. Bilirubin is 3.3 down from 4 yesterday. AST and ALT are 48 and 34. Protein 5.9 and albumin 2.7. ASSESSMENT: 1. Cirrhosis, stable. 2. Renal function improved of octreotide and albumin. 3. Gastrointestinal bleeding, none at this point in time. Biopsies were negative for malignancy and ulcer or Helicobacter pylori. 4. Peripheral edema 2+ with some ascites. PLAN: Continue PPI p.o. and Lasix 20 mg p.o. q. a.m., albumin 50 mg q.a.m., melatonin, Protoni x, rifaximin and lactulose. Anticipate discharge in 1 to 2 days.
--- NOTE | 2018-01-19 01:06 | PRG ---
DATE OF SERVICE: 01/18/2018 Mr. Daugherty is eating well. He is voiding. He is without complaints. PHYSICAL EXAMINATION: VITAL SIGNS: Temperature is 97, pulse 80, blood pressure 107/62. ABDOMEN: Protuberant, distended, but not tender. Bowel sounds are positive. EXTREMITIES: Weight today, 202, 197 on the 12th and 199 yesterday. LABORATORY STUDIES: White count 8.7, hemoglobin 9.2 and stable, platelet count 101. Sodium 138, pot assium 3.9, BUN and creatinine 22, 0.78. Bilirubin is 3.9, AST down to 50 and 35. Albumin is 2.7. ASSESSMENT: 1. Cirrhosis, decompensated. 2. Gastrointestinal bleed from large duodenal ulcer. H. pylori negative, biopsies malignancy negati ve. 3. Renal insufficiency, improved. 4. Ascites, stable. 5. The patient is ambulating, getting up and sitting in a chair. He wants to go home and not to [facility] ab[facility]. RECOMMENDATIONS: 1. I think the patient will go home tomorrow with lactulose t.i.d. to titrate to 3-5 bowel movements a day, rifaximin 550 p.o. b.i.d., Aldactone 100 mg daily, furosemide 40 mg daily, Protonix 40 mg p.o . b.i.d. He needs to avoid all NSAIDs. A good pain medication for him to go home would be Ultram. I recommend that he not use his oxycodone or any sleep aids at home encephalopathy. 2. He is to follow up with [facility] in [place] where he started evaluation. He needs to follow up wi th us in 1 week. I will facilitate that.
[2018-01-19 05:17] LABS: #Basophils 0.2 thou/uL (0.0-0.2); #Eosinphils 0.2 thou/uL (0.0-0.7); #Lymphocytes 1.3 thou/uL (1.20-3.40); #Monocytes 0.7 thou/uL (0.11-0.59); %Basophils 1.8 % (0.0-1.0); %Eosinophils 1.8 % (0.0-10.0); %Lymphocytes 13.6 % (21.0-51.0); %Monocytes 7.7 % (0.0-10.0); %Neutrophils 75.2 % (42.0-75.0); Hemoglobin 9.3 g/dL (14.0-18.0); Mean Corpuscular Hemoglobin 34.2 pg (27.0-31.0); Mean Platelet Volume 5.9 fL (7.4-10.4); Platelet Count 113 thou/uL (130-400); RBC Distribution Width 17.8 % (11.5-14.5); Red Blood Cell (RBC) Count 2.71 mill/uL (4.70-6.10); White Blood Cell (WBC) Count 9.3 thou/uL (4.8-10.8)
[2018-01-19 05:23] LABS: INR-International Normal Ratio 1.9; PTT 42.3 SEC (22.9-36.1); Prothrombin Time 22.4 SEC (12.0-14.7)
[2018-01-19 05:29] LABS: ALT (SGPT) 38 U/L (8-55); AST (SGOT) 59 U/L (5-34); Albumin 2.6 g/dL (3.4-4.8); Alkaline Phosphatase 144 U/L (40-150); Anion Gap 10 mmol/L (10-20); BUN (Urea Nitrogen) 20 mg/dL (8.4-25.7); Bilirubin, Total 2.7 mg/dL (0.2-1.2); Calc. Creatinine Clearance 131 mL/min (70-130); Calcium 8.2 mg/dL (7.8-10.44); Carbon Dioxide 21 mmol/L (23-31); Chloride 109 mmol/L (98-107); Estimated GFR-MDRD Greater than 90; Globulin 2.8 g/dL (2.4-3.5); Glucose 98 mg/dL (80-115); Potassium 3.7 mmol/L (3.5-5.1); Protein, Total 5.4 g/dL (5.8-8.1); Sodium 136 mmol/L (136-145)
[2018-01-19] MEDS ORDERED: Spironolactone 25 MG TAB PO SCH (08:00)
--- NOTE | 2018-01-19 08:07 | PDOC.FM ---
- Subjective Subjective: Patient is doing well today. He endorses no pain, bleeding, SOB, and been walking, eating. - Objective MAR Reviewed: Yes Vital Signs & Weight: Vital Signs (12 hours) Temp Pulse Resp BP Pulse Ox 01/19/18 07:26 98 F 91 16 121/73 93 L Weight Admit Weight 85.82 kg Weight 91.762 kg Most Recent Monitor Data Heart Rate from ECG 97 NIBP 129/58 NIBP BP-Mean 76 Respiration from ECG 22 SpO2 99 I&O: 01/18/18 01/19/18 01/20/18 06:59 06:59 06:59 Intake Total 1710 850 Output Total 1 Balance 1710 849 Result Diagrams: 01/19/18 04:17 01/19/18 04:17 <Emanuel Wood M - Last Filed: 01/19/18 08:04> - Objective Vital Signs & Weight: Vital Signs (12 hours) Temp Pulse Resp BP Pulse Ox 01/19/18 07:26 98 F 91 16 121/73 93 L Weight Admit Weight 85.82 kg Weight 91.762 kg Most Recent Monitor Data Heart Rate from ECG 97 NIBP 129/58 NIBP BP-Mean 76 Respiration from ECG 22 SpO2 99 I&O: 01/18/18 01/19/18 01/20/18 06:59 06:59 06:59 Intake Total 1710 850 Output Total 1 Balance 1710 849 Result Diagrams: 01/19/18 04:17 01/19/18 04:17 <Brant Gutierrez A - Last Filed: 01/19/18 10:51> Phys Exam - Physical Examination Constitutional: NAD HEENT: moist MMs Neck: no nodes, supple Respiratory: no wheezing, no rales, no rhonchi, clear to auscultation bilateral Cardiovascular: RRR, no rub Gastrointestinal: soft, non-tender +1 edema to mid gregory Neurological: non-focal, moves all 4 limbs Lymphatic: no nodes Psychiatric: normal affect, A&O x 3 Skin: no rash <Emanuel Wood M - Last Filed: 01/19/18 08:04> Dx/Plan (1) GI bleed Code(s): K92.2 - GASTROINTESTINAL HEMORRHAGE, UNSPECIFIED Status: Acute QualifierTitle: GI bleed type/associated pathology: unspecified gastrointestinal hemorrhage type Qualified Code(s): K92.2 - Gastrointestinal hemorrhage, unspecified Plan: Hospital day 0 Hgb continues to be stable post transfusion GI is on board for this case, appreciate recs. Patient will d/c with PPI, diuretic, lactulose, rifixime, (2) Cirrhosis Code(s): K74.60 - UNSPECIFIED CIRRHOSIS OF LIVER Status: Chronic Plan: Decompensated cirrhosis. Patient is exploring options with Dr. Tobar in [place] (3) Hyponatremia Code(s): E87.1 - HYPO-OSMOLALITY AND HYPONATREMIA Status: Acute Plan: Has improved since admission and is stable. (4) Hemorrhagic shock Code(s): R57.8 - OTHER SHOCK Status: Resolved Plan: Resolved. No further bleeding has been noted and hgb stable. (5) Steatohepatitis Code(s): K75.81 - NONALCOHOLIC STEATOHEPATITIS (SINGH) Status: Chronic Plan: Known chronic issue that is likely cause of patient's cirrhosis. (6) Delirium Code(s): R41.0 - DISORIENTATION, UNSPECIFIED Status: Acute Plan: Resolving issue. Plan to continue with current medication. Less likely that this is brain pathology as increase treatment for ammonia appear to resolve it versus delirium after move from ICU (7) Physical deconditioning Code(s): R53.81 - OTHER MALAISE Status: Acute Plan: PT feels patient is regaining strength and does not require PT. They have discharge him from their service. <Emanuel Wood - Last Filed: 01/19/18 08:04> Attending Addendum - Attending Addendum Date/Time: 01/19/18 1051 I personally evaluated the patient and discussed the management with Dr. Wood. I agree with the History, Examination, Assessment and Plan documented above with any addition or exceptions noted below. Stable for discharge. <Brant Gutierrez - Last Filed: 01/19/18 10:51>
[2018-01-19] MEDS: Rifaximin 550 MG TAB PO SCH (08:32)
[2018-01-19] MEDS ORDERED: Furosemide 20 MG TAB PO SCH (09:00)
[2018-01-19 13:50] VITALS: BP 117/73; TEMP 98.1
== END 2018-01-19 15:20 | disposition home or self-care (01) | DRG 356 ==
LOC: T4-B 16:01 → CCU 01-11 10:00 → T4-B 01-14 12:48
PROVIDERS: ADMIT Family Medicine; ATTEND Family Medicine
PROC: 0FB04ZX Excision of Liver, Percutaneous Endoscopic Approach, Diagnostic (ICD-10-PCS; principal; 2018-01-10)
PROC: 0DB78ZX Excision of Stomach, Pylorus, Via Natural or Artificial Opening Endoscopic, Diagnostic (ICD-10-PCS; 2018-01-10)
PROC: 3E0G8GC Introduction of Other Therapeutic Substance into Upper GI, Via Natural or Artificial Opening Endoscopic (ICD-10-PCS; 2018-01-11)
PROC: 0DJ08ZZ Inspection of Upper Intestinal Tract, Via Natural or Artificial Opening Endoscopic (ICD-10-PCS; 2018-01-11)
PROC: 02HV33Z Insertion of Infusion Device into Superior Vena Cava, Percutaneous Approach (ICD-10-PCS; 2018-01-11)
PROC: B548ZZA Ultrasonography of Superior Vena Cava, Guidance (ICD-10-PCS; 2018-01-11)
PROC: 5A1945Z Respiratory Ventilation, 24-96 Consecutive Hours (ICD-10-PCS; 2018-01-11)
DX: K26.3 Acute duodenal ulcer without hemorrhage or perforation (principal); R57.8 Other shock; G92 Toxic encephalopathy; J96.01 Acute respiratory failure with hypoxia; E87.1 Hypo-osmolality and hyponatremia; K76.6 Portal hypertension; D68.4 Acquired coagulation factor deficiency; D62 Acute posthemorrhagic anemia; R18.8 Other ascites; K21.9 Gastro-esophageal reflux disease without esophagitis; Z88.0 Allergy status to penicillin; K58.9 Irritable bowel syndrome, unspecified; K31.89 Other diseases of stomach and duodenum; I85.00 Esophageal varices without bleeding; E78.5 Hyperlipidemia, unspecified; I95.89 Other hypotension; D69.6 Thrombocytopenia, unspecified; Z95.5 Presence of coronary angioplasty implant and graft; K75.81 Nonalcoholic steatohepatitis (NASH); K74.60 Unspecified cirrhosis of liver; R53.81 Other malaise; F17.210 Nicotine dependence, cigarettes, uncomplicated; E87.5 Hyperkalemia
CPT/HCPCS: 36415; 36430; 71045; 74018; 74150; 80053; 81001; 82140; 82805; 83735; 84100; 85025; 85610; 85730; 86850; 86900; 86901; 88305; 88342; 94002; 94003; 94640; A4216; C9113; G8978-GP-CJ; G8979-GP-CJ; G8980-GP-CJ; J1940; J1956; J2250; J2354; J2405; J2704; J3486; J7050; J7620; P9016; P9047; P9059

== ENCOUNTER 2018-02-08 09:51 | Day surgery (SDC) | payer BC ==
[2018-02-06 16:24] VITALS: BMI 28.4
--- NOTE | 2018-02-08 12:17 | ULT ---
PROCEDURE NOTE: Date: 02/08/18 PREPROCEDURE DIAGNOSIS: Ascites. POSTPROCEDURE DIAGNOSIS: Ascites. PROCEDURE: Ultrasound guided paracentesis. HOME HEALTH [facility] OT: Dr. Hernandez. COMPLICATIONS: None. ANESTHESIA: 7 mL buffered 1% lidocaine. SPECIMEN: 6 liters of straw-colored fluid. TECHNIQUE: Prior to the procedure, the risks and benefits of an ultrasound guided paracentesis were explained to the patient and he consented fully to the procedure. Ultrasound was used to interrogate the abdomen, showing a larger fluid collection in the right abdome n. The right abdomen was then prepped and draped in the usual sterile fashion. Lidocaine was used to anesthetize the skin and soft tissues down towards the peritoneal cavity. A sma ll skin incision was made, allowing for passage of the Yueh needle and catheter. This was then placed using ultrasound guidance into the peritoneal cavity within the fluid. The Yueh catheter was left in place and the needle removed. Yueh catheter was connected to multiple vacutainer bottles. A total of 6 liters of straw-colored flui d was removed. At the end of the procedure, no significant residual fluid was seen. IMPRESSION: Status post successful ultrasound guided paracentesis. POS: [facility]
[2018-02-08 12:53] VITALS: BP 122/70; TEMP 97.9
== END 2018-02-08 11:50 | disposition home or self-care (01) ==
LOC: ULT 09:51
PROVIDERS: ATTEND Internal Medicine Gastroenterology
PROC: 0W9G3ZZ Drainage of Peritoneal Cavity, Percutaneous Approach (ICD-10-PCS; principal; 2018-02-08)
DX: R18.8 Other ascites (principal); K74.60 Unspecified cirrhosis of liver; I10 Essential (primary) hypertension; I25.10 Atherosclerotic heart disease of native coronary artery without angina pectoris; Z95.5 Presence of coronary angioplasty implant and graft; Z88.0 Allergy status to penicillin
CPT/HCPCS: 49083

== ENCOUNTER 2018-04-23 11:17 | Outpatient (CLI) | payer BC | END 2018-04-23 11:18 | disposition home or self-care (01) | LOC: BICRAD 11:17 | PROVIDERS: ATTEND Family Medicine | DX: M54.9 Dorsalgia, unspecified (principal); M43.8X4 Other specified deforming dorsopathies, thoracic region | CPT/HCPCS: 72072 ==

== ENCOUNTER 2018-05-14 09:27 | Outpatient (CLI) | payer BC ==
--- NOTE | 2018-05-14 12:34 | MRI ---
MRI THORACIC SPINE WITHOUT CONTRAST: Technique: Multiplanar, multisequence MRI images were obtained of the thoracic spine with multiplanar reconstruction. Indications: Thoracic compression fracture, back pain. Correlation: Plain film thoracic spine, 04-23-18. FINDINGS: There is an anterior wedge compression deformity involving the T7 vertebra with significant loss of c entral and anterior height of over 50%. The central and anterior compression of this vertebrae appear s to have progressed slightly when compared to 04-23-18 plain film exam. There is edema within this ve rtebrae seen on STIR sequence. The other thoracic vertebrae maintain normal height and alignment and exhibits normal signal. T6-7: There is an asymmetric disc protrusion on the left flattening the anterior thecal sac and impin ging on the cord anteriorly on the left. T7-8: There is a central disc protrusion with slight superior extension effacing the anterior subarac hnoid space and impinging on the anterior cord. There may be mild associated retropulsion of the post erior cortex of the T7 vertebra at this location. CT would be of benefit to better defined the osseou s involvement. T8-9: There is a prominent central disc protrusion impinging on flattening the cord centrally. There is suggestion of mild edema within the cord at this location secondary to this protrusion. T10-11: Diffuse disc protrusion impinges on the anterior cord produces slight flattening of the cord. IMPRESSION: 1. There is a compressed deformity involving the T7 vertebra with significant loss of central and ant erior height of over 50%. There may be slight posterior retropulsion and there is an associated disc protrusion at T7-8 impinging on the cord as described. 2. There is a disc protrusion at T8-9 impinging on and flattening the cord and there is suggestion of early edema or myelomalacia within the cord at this location. 3. Disc protrusion at T10-11 is noted as described. 4. Small protrusion at T6-7 is noted as described. POS: [facility]
== END 2018-05-14 09:28 | disposition home or self-care (01) ==
LOC: BICMRI 09:27
PROVIDERS: ATTEND Family Medicine
DX: S22.009A Unspecified fracture of unspecified thoracic vertebra, initial encounter for closed fracture (principal); M51.24 Other intervertebral disc displacement, thoracic region; M43.8X4 Other specified deforming dorsopathies, thoracic region
CPT/HCPCS: 72146